=== PATIENT | female | born 1985 | race Caucasian/White ===

== ENCOUNTER → 2016-10-28 | Outpatient (CLI) | payer OTHER ==
--- NOTE | 2016-10-28 11:03 | US ---
EXAMINATION TYPE: US abdomen complete DATE OF EXAM: 10/28/2016 10:37 AM COMPARISON: CT in PACS CLINICAL HISTORY: R1013 EPIGASTIC PAIN. Pt states ABD pain, more on left EXAM MEASUREMENTS: Liver Length: 15.0 cm Gallbladder Wall: Surgically absent cm CBD: 0.4 cm Spleen: 13.7 cm Right Kidney: 11.8 x 3.7 x 4.2 cm Left Kidney: 11.3 x 4.2 x 5.7 cm Pancreas: wnl Liver: wnl Gallbladder: Surgically absent Evidence for sonographic Mena's sign: No CBD: wnl Spleen: Appeared enlarged Right Kidney: wnl Left Kidney: wnl Upper IVC: wnl Abd Aorta: wnl The liver is homogenous. The intrahepatic portion of the IVC and proximal abdominal aorta are within normal limits. The gallbladder is surgically absent. Common bile duct is unremarkable. The visualiz ed portions of the pancreas are homogenous. The spleen is mildly enlarged. Kidneys are symmetric and free of hydronephrosis. No renal lesions are seen. IMPRESSION: 1. Mild splenomegaly.
--- NOTE | 2016-10-28 12:01 | FL ---
EXAMINATION TYPE: FL UGI DATE OF EXAM: 10/28/2016 11:55 AM COMPARISON: NONE HISTORY: R10.3 EPIGASTRIC PAIN TECHNIQUE: Air contrast upper GI was performed. FINDINGS: Shoe Lay Out Planner image of the abdomen shows no gross abnormality. The esophagus shows normal motility and emptying into the stomach. No evidence of hiatal hernia or s tricture noted. Mild gastroesophageal reflux seen. The stomach shows normal distensibility, peristalsis, and mucosal folds. No evidence of any mass or ulcer disease. No significant gastroesophageal reflux was seen during real time performance of this study. The duodenal bulb and descending duodenum demonstrate mildly increased folds which may reflect duoden itis. IMPRESSION: 1. Suspect duodenitis. 2. Mild gastroesophageal reflux.
== END | disposition home or self-care (01) ==
LOC: RADUSWWP 10:17
PROVIDERS: ATTEND Family Medicine
DX: K21.9 Gastro-esophageal reflux disease without esophagitis (principal); R16.1 Splenomegaly, not elsewhere classified
CPT/HCPCS: 74240; 76700

== ENCOUNTER → 2017-01-27 | Outpatient (CLI) | payer OTHER ==
--- NOTE | 2017-01-27 17:41 | PN ---
DATE OF SERVICE: 01/27/17 A 31 year old lady has been followed in the Sleep Center for treatment of narcolepsy. I saw the patient about one year ago. At that time, we planned to repeat polysomnogram with multiple sleep latency test to confirm diagnosis of narcolepsy because previous sleep study was done with only three naps. The patient was not able to stay for four naps. The patient continued to have symptoms of significant excessive daytime sleepiness. Presently, [place] sleep scale is 23. Positive history of sleep paralysis, out of dream episodes of movement with her arm, fibromyalgia. In August 2015, the patient had intracranial hemorrhage. After that, she developed more episodes of irritability. Her sleep schedule now is from around 10:00 p.m. until around 7:30 a.m. Usually no problems with falling asleep while she is on Nortriptyline at bedtime. Presently her medications are: 1. Modafinil. 2. Lamictal. 3. Nortriptyline. 4. Promethazine. 5. Bentyl. 6. Hydrocodone. 7. Lisinopril. 8. BuSpar. 9. Q-Chris inhaler. 10. Ibuprofen. 11. Protonix. During physical exam, the patient in no distress. BP 114/73, HR 88, RR 16, height 5 feet 4 inches, weight 154, BMI 26.2, temp 98.3, oxygen saturation to 96 %. oropharynx moderately low position of soft palate. Possibly herpes on the upper lip. Other physical examination basically normal. HEENT: Some restriction of nasal breathing. Nasoseptal deviation. NECK: Supple. No JVD. Thyroid is not palpable. LUNGS: Clear to auscultation and percussion. Good air exchange. No wheezing or rhonchi. HEART: S1, S2 regular. No murmurs, gallops or rubs. EXTREMITIES: No clubbing or cyanosis. ABDOMEN: Soft, nontender. Bowel sounds present. No organomegaly appreciated. ONCOLOGY PHYSICIAN: Awake, alert and oriented times three. Cranial nerves 2 thru 7 intact. There is no fasciculation or atrophy noted. No focal deficits observed. IMPRESSION: 1. Narcolepsy with cataplexy. 2. Fibromyalgia. 3. Status post intracranial hemorrhage in August of 2015 without any significant neurological deficits. 4. Nasoseptal deviation with restriction of nasal breathing. 5. Asthma. 6. Acid reflux. 7. Back problems. 8. Migraines. 9. Possible REM sleep behavior disorder. 10. History of sleep paralysis. 11. Hypertension. PLAN: 1. Polysomnography for checking sleep and to recheck for any abnormalities of respiration with the following multiple sleep latency test. 2. Sleep hygiene with regular time in bed for at least eight hours. 3. No driving if feels any sleepiness. 4. Preferable position during sleep on the side. 5. Follow up visit after polysomnogram with MSLT to discuss the results and the following plan. 6. The patient is presently on Modafinil 400 mg in the morning, continue treatment with Modafinil. We may consider to add additional medication to decrease sleepiness but some ( ) medications may increase heart rate and subsequently blood pressure and subsequently will be contraindicated for the patient. Thank you very much for allowing me to participate in the management of your patient. Sincerely, Ad Lanza MD, PhD, [facility]. Diplomate of [place] [employer] of Sleep Medicine. Sleep Medicine Board by [place] [employer] Specialties [place] Board[employer] of Internal Medicine Business Manager of [facility] [place] [facility]
== END | disposition home or self-care (01) ==
LOC: SLEEP 16:05
PROVIDERS: ATTEND Internal Medicine
DX: G47.411 Narcolepsy with cataplexy (principal); M79.7 Fibromyalgia; J45.909 Unspecified asthma, uncomplicated; K21.9 Gastro-esophageal reflux disease without esophagitis; G43.909 Migraine, unspecified, not intractable, without status migrainosus; I10 Essential (primary) hypertension; J34.2 Deviated nasal septum; Z79.1 Long term (current) use of non-steroidal anti-inflammatories (NSAID); Z79.899 Other long term (current) drug therapy

== ENCOUNTER → 2017-05-25 | Outpatient (CLI) | payer OTHER ==
--- NOTE | 2017-05-25 11:32 | PN ---
FOLLOW UP VISIT DATE OF SERVICE: 05/25/2017. HISTORY: 32-year-old lady has been followed in Sleep Center to discuss results of the sleep studies and plan of the treatment. I discussed results of the studies with the patient in details. Polysomnogram did not show any significant respiratory abnormalities. Apnea-hypopnea index was 0. Oxygen level was above 91.5%. Multiple sleep latency on the following day consisted from 5 naps. Mean sleep latency was extremely short, only 3.1 minutes. No sleep onset REM periods have been documented. That indicates a diagnosis of narcolepsy. The patient was treated with modafinil. Originally she was treated with modafinil 400 mg, but then she did not feel well that and the dose was decreased to 200 mg. With this dose she still had some kind of and still feels a little bit nervousness and she continued to feel sleepiness during the day. [place] Sleepiness Scale today is 22. MEDICATIONS: Modafinil, Lamictal, nortriptyline, Bentyl, Promethazine, hydrocodone, lisinopril, BuSpar, QVAR inhaler, ibuprofen, Protonix. PHYSICAL EXAM: Patient in no distress, BP 122/81, HR 102, RR 14, temperature 98.3, oxygen saturation on room air 97%. Oropharynx moderately low position of soft palate. Nasal septum deviation. Neck Supple, no JVD. Thyroid is not palpable. LUNGS Clear to percussion and to auscultation. Good air exchange. No wheezing or rhonchi. HEART S1, S2 regular. No murmurs, gallops, or rubs. ABDOMEN Soft and nontender. Bowel sounds are present. No organomegaly appreciated. EXTREMITIES No clubbing or cyanosis. SILK SPOTTER Awake, alert, and oriented X3. Cranial nerves 2 to 7 intact. There is no fasciculation or atrophy. noted. No focal deficits observed. IMPRESSION: 1. No significant respiratory abnormalities during the sleep study. 2. Multiple sleep latency test showed a very short sleep latency 3.1 minutes which possibly confirmed diagnosis of narcolepsy without cataplexy. 3. Status post intracranial bleed in August of 2016 with unknown cause. 4. History of fibromyalgia. 5. Asthma. 6. Nasal septum deviation with restriction of nasal breathing. 7. Acid reflux. 8. Back problems. 9. Migraine. 10.History of sleep paralysis. 11.Hypertension. 12.A positive history of movements at night. It was documented marie and leg ___ __ in REM sleep during the sleep study, but no abnormal movements have been documented. PLAN: 1. I will start the patient with treatment on Adderall 5 mg in the morning and at around 1:00 pm. 2. Patient may continued to use her modafinil with adjustments of the dose. 3. No driving if feeling any sleepiness. 4. Sleep hygiene with regular time in bed for at least 8 hours. 5. HLA profile for narcolepsy. Thank you very much for allowing me to participate in management of your patient. Sincerely, Ad Lanza MD, PhD, FAASM Diplomat of [place] [employer] of Medical Specialties [place] [employer] of Internal Medicine Rope Rider of [facility] [place] EUSEBIA / HANKN: [id number] / MTDSiomara
== END | disposition home or self-care (01) ==
LOC: SLEEP 10:06
PROVIDERS: ATTEND Internal Medicine
DX: J45.909 Unspecified asthma, uncomplicated (principal); J34.2 Deviated nasal septum; K21.9 Gastro-esophageal reflux disease without esophagitis; G43.909 Migraine, unspecified, not intractable, without status migrainosus; I10 Essential (primary) hypertension; Z79.891 Long term (current) use of opiate analgesic; Z79.1 Long term (current) use of non-steroidal anti-inflammatories (NSAID); Z79.899 Other long term (current) drug therapy

== ENCOUNTER → 2017-07-28 | Outpatient (CLI) | payer OTHER ==
--- NOTE | 2017-07-28 12:28 | PN ---
PROGRESS NOTE DATE OF SERVICE: 07/28/2017 A 52-year-old lady who has been followed in the Sleep Center for treatment of narcolepsy. Presently patient is on treatment with Adderall 5 mg 2 times a day and Provigil 200 mg in the morning. In the past, patient tried Provigil 400 but according to her, it created more nervousness and anxiety and at the present time at the dose of 200 mg, also feel more nervous with this dose of Provigil. Adderall with a dose of 5 mg does not significantly improve her feeling with relationship to sleepiness. [place] Sleepiness Scale today is 22. Positive history of cataplexy is reaction on some emotions, especially laughing. Patient did not take her Adderall today. Patient continued to have some out of dream movements. MEDICATIONS: Modafinil, Lamictal, nortriptyline, Bentyl, promethazine, hydrocodone, lisinopril, BuSpar, QVAR inhaler, ibuprofen, Protonix. PHYSICAL EXAM: Patient in no distress. BP 144/96 on the right arm, pulse 102, RR 16. On the left arm, blood pressure 139/93, height 5, 4, weight 156, BMI 26.7, temp 97.5, oxygen saturation room air 98%. OROPHARYNX: Moderately low position of soft palate. Neck Supple, no JVD. Thyroid is not palpable. LUNGS Clear to percussion and to auscultation. Good air exchange. No wheezing or rhonchi. HEART S1, S2 regular. No murmurs, gallops, or rubs. ABDOMEN Soft and nontender. Bowel sounds are present. No organomegaly appreciated. EXTREMITIES No clubbing or cyanosis. GARDEN WORKER Awake, alert, and oriented X3. Cranial nerves 2 to 7 intact. There is no fasciculation or atrophy. noted. No focal deficits observed. IMPRESSION: 1. Narcolepsy with cataplexy. 2. , history of fibromyalgia. 3. Status post intracranial bleed in August of 2016 with unknown cause. 4. Nasal septum deviation with restriction of nasal breathing. 5. Acid reflux. 6. Back problem. 7. Migraine. 8. Hypertension. 9. No significant periodic limb movements by results of polysomnogram. 10.Possible REM sleep behavioral disorder. PLAN: 1. Patient will decrease dose of modafinil to 100 mg in the morning. 2. Will increase dose of Adderall to 10 mg 2 times a day. 3. Patient will very closely monitor her blood pressure. If increasing blood pressure on Adderall, she will decrease the dose or stop using. 4. She may need adjustments of medication for her blood pressure. 5. Sleep hygiene with regular time in bed for 7.5 hours. 6. No driving if feeling sleepiness. 7. Precaution to possibility of REM sleep behavioral disorder. Precaution should be using the [place] size bed. Not any objects close to the patient at night. No excess to fire, preferably to put mattress on the floor. We may consider to use clonazepam at that time to prevent these events. Thank you very much for allowing me to participate in the management of your patient. Sincerely, Ad Lanza MD, PhD, FAASM Diplomat of [place] Board of Medical Specialties [place] Board of Internal Medicine Electric Dolly Operator of [facility] [place] [email or web address] / HANKN: [id number] /
== END | disposition home or self-care (01) ==
LOC: SLEEP 10:32
PROVIDERS: ATTEND Internal Medicine
DX: G47.411 Narcolepsy with cataplexy (principal); I10 Essential (primary) hypertension; J34.2 Deviated nasal septum; M79.7 Fibromyalgia; G43.909 Migraine, unspecified, not intractable, without status migrainosus; K21.9 Gastro-esophageal reflux disease without esophagitis; Z79.1 Long term (current) use of non-steroidal anti-inflammatories (NSAID); Z79.51 Long term (current) use of inhaled steroids; Z79.899 Other long term (current) drug therapy; Z86.79 Personal history of other diseases of the circulatory system

== ENCOUNTER → 2017-10-13 | Day surgery (SDC) | payer OTHER ==
[2017-10-11 15:46] VITALS: BMI 25.7
[~2017-10-13] MED LIST: GLYCOPYRROLATE 0.2 MG/ML 2 ML VIAL ONE; LACTATED RINGERS 1,000 ML IV SCH; LIDOCAINE 1% 20 ML VIAL (10MG/ML) FOR IV START INTRADERMA PRN; LIDOCAINE 1% INJ 10MG/ML (20 ML MDV) ONE; PROPOFOL 10 MG/ML 20 ML VIAL IV ONE; fentaNYL (PF) 50 MCG/ML 2 ML AMP ONE
[2017-10-13 11:22] VITALS: RESP 16; TEMP 97.8
--- NOTE | 2017-10-13 12:09 | P.PCN ---
Date of Procedure: 10/13/17 Procedure(s) Performed: Procedure: Esophagogastroduodenoscopy and biopsy. Preoperative diagnosis: Epigastric pain. Postoperative diagnosis: 1. Mild gastritis. 2. Multiple biopsies obtained from the duodenum, antrum and esophagus. Preparation sedation: Was provided by anesthesia. Brief clinical history: The patient is a 32-year-old female who is referred for this evaluation because of epigastric pain. She has chronic reflux on treatment. She has also been experiencing and vomiting including coffee-ground vomiting and black stools around 2 weeks ago. This evaluation is to assess for peptic ulcer disease or other pathology. Procedure: With the patient on her left lateral decubitus position and after informed consent and adequate sedation, I passed the Olympus-GIF 160 video upper endoscope through the cricopharyngeus down the esophagus. GE junction was around 40 cm from the incisors and there was no definite hiatal hernia. There was no evidence of esophagitis or complicated reflux disease. The endoscope was then passed into the stomach which was insufflated with air and inspected in detail including the retroflex view in the cardia. There was some mottling and erythema in the antrum consistent with mild gastritis but there were no ulcers or erosions. Pyloric channel, duodenal bulb, post bulbar area and descending duodenum appeared within normal limits. Because of her symptoms , I obtained biopsies from the duodenum, antrum and esophagus then the endoscope was withdrawn. The patient tolerated the procedure well. Plan: The patient was reassured. Will await biopsy results and make further recommendations based on her course. She will follow-up with you as planned and I would be happy to see in the office if her symptoms persist.
[2017-10-13 12:34] VITALS: BP 114/70; PULSE 77
== END | disposition home or self-care (01) ==
LOC: ORWHC2ENDO 10:59
DX: K29.50 Unspecified chronic gastritis without bleeding (principal); K21.0 Gastro-esophageal reflux disease with esophagitis; J45.909 Unspecified asthma, uncomplicated; M79.7 Fibromyalgia; F17.210 Nicotine dependence, cigarettes, uncomplicated; Z79.51 Long term (current) use of inhaled steroids; Z79.1 Long term (current) use of non-steroidal anti-inflammatories (NSAID); Z88.8 Allergy status to other drugs, medicaments and biological substances; Z86.73 Personal history of transient ischemic attack (TIA), and cerebral infarction without residual deficits; Z79.891 Long term (current) use of opiate analgesic; Z79.899 Other long term (current) drug therapy
CPT/HCPCS: 81025; 88305; 43239; J2001; J3010; J2704

== ENCOUNTER → 2017-10-27 | Outpatient (CLI) | payer OTHER ==
--- NOTE | 2017-10-27 11:36 | SFUN ---
SLEEP CENTER FOLLOW UP NOTE DATE OF SERVICE: 10/27/2017 This 32-year-old lady has been followed in the sleep center for treatment of narcolepsy. Presently, patient is on treatment with Adderall 10 mg at 7 a.m. and at 1 p.m. and also Provigil 100 mg in the morning. With this regimen, she still feels very sleepy on the second part of the day and has problem with her sleep, has more episodes of sleep paralysis. [place] Sleepiness Scale today 21. The patient is on Klonopin 0.5 mg at bedtime, but she still continues to have some movements during the night especially in the middle of the night on that dose. MEDICATIONS: Modafinil, Lamictal, nortriptyline, Bentyl, promethazine, hydrocodone, lisinopril, BuSpar, Qvar inhaler, ibuprofen, Protonix, additionally clonazepam. PHYSICAL EXAM: During physical exam, the patient is in no distress. VITAL SIGNS: BP 125/86, HR 100, RR 16, height 5 feet 4 inches, weight 149, BMI 25.5, temp 99.5. HEENT: PERRLA, EOMI. Oropharynx moderately low position of soft palate. NECK: Supple, no JVD. Thyroid is not palpable. LUNGS: Clear to percussion and to auscultation. Good air exchange. No wheezing or rhonchi. HEART: S1, S2 regular. No murmurs, gallops, or rubs. ABDOMEN: Soft and nontender. Bowel sounds are present. No organomegaly appreciated. EXTREMITIES: No clubbing or cyanosis. FIBER DESIGN ENGINEER: Awake, alert, and oriented X3. Cranial nerves 2 to 7 intact. There is no fasciculation or atrophy. noted. No focal deficits observed. IMPRESSION: 1. Narcolepsy with cataplexy. 2. History of fibromyalgia. 3. Status post intracranial bleed in August 2016 with unknown cause. 4. Nasal septum deviation with restriction of nasal breathing. 5. Acid reflux. 6. Back problems. 7. History of migraine. 8. Hypertension. 9. No significant periodic limb movements. 10.Possible REM sleep behavioral disorder. PLAN: 1. The patient does not feel well with modafinil. She has episodes of headaches sometimes with modafinil that upsets her stomach. We will stop modafinil. 2. Will increase dose of Adderall to 30 mg a day, 10 mg in the morning after awakenings, 10 mg at noon and 10 mg at 3 p.m. 3. Monitoring of blood pressure. 4. No driving if feeling any sleepiness. 5. Sleep hygiene with regular time in bed for at least 8 hours. 6. Patient still has movements at night. We will increase the dose of Klonopin to 0.75 mg at bedtime. Presently, she is on 0.5 mg. 7. Precautions related to REM sleep behavioral disorder has been discussed with the patient. Thank you very much for allowing me to participate in management of your patient. Sincerely, Ad Lanza MD, PhD, FAASM Diplomat of [place] Board of Medical Specialties [place] Board of Internal Medicine Mechanical Product Design Engineer of [facility] [place] EUSEBIA / KELSEY: [id number] /
== END | disposition home or self-care (01) ==
LOC: SLEEP 10:15
PROVIDERS: ATTEND Internal Medicine
DX: G47.411 Narcolepsy with cataplexy (principal); M79.7 Fibromyalgia; J34.2 Deviated nasal septum; K21.9 Gastro-esophageal reflux disease without esophagitis; M54.9 Dorsalgia, unspecified; I10 Essential (primary) hypertension; Z86.69 Personal history of other diseases of the nervous system and sense organs; Z79.51 Long term (current) use of inhaled steroids; Z79.1 Long term (current) use of non-steroidal anti-inflammatories (NSAID); Z86.79 Personal history of other diseases of the circulatory system; Z79.899 Other long term (current) drug therapy; Z98.890 Other specified postprocedural states; Z79.891 Long term (current) use of opiate analgesic

== ENCOUNTER → 2018-03-16 | Outpatient (CLI) | payer OTHER ==
--- NOTE | 2018-03-16 11:37 | SFUN ---
SLEEP CENTER FOLLOW UP NOTE DATE OF SERVICE: 03/16/2018 A 33-year-old lady who has been followed in the Sleep Center for treatment of narcolepsy. Presently, patient is on treatment with Adderall 10 mg in the morning, around noontime and around 2 pm. With this regimen, she still has some maximal problems with her sleepiness around 2 pm. I asked her about the heart rate and patient believes that with the Adderall, no significant changes of her heart rate while she is on medication. She is also on several medications for the blood pressure. Recently, metoprolol was added for the treatment just because of the heart rate. [place] Sleepiness Scale today is 22. Occasional episodes of cataplexy, but without fall just with slight weakness in the body as a reaction from laughing and anger. MEDICATIONS: Trintellix 10 mg daily, Adderall 10 mg t.i.d., lisinopril-hydrochlorothiazide once a day, [QAMARKER], promethazine 25 mg once a day, Nortriptyline 100 mg at bedtime, Klonopin 1 mg at bedtime, QR inhaler Ventolin, Pierpont, omeprazole, metoprolol, hyoscyamine, vitamin D supplement. With Klonopin at bedtime, patient feels that she sleeps well during the night and not any present problems related to the sleep itself.. PHYSICAL EXAM: Patient in no distress, BP 107/60, HR 90, RR 16, height 5, 4, weight 137, BMI 22.4, temperature 98.4, oxygen saturation room air 98%. OROPHARYNX: Moderately low position of soft palate. HEART: S1, S2, regular, tachycardia. Neck Supple, no JVD. Thyroid is not palpable. LUNGS Clear to percussion and to auscultation. Good air exchange. No wheezing or rhonchi. ABDOMEN Soft and nontender. Bowel sounds are present. No organomegaly appreciated. EXTREMITIES No clubbing or cyanosis. HUMAN RESOURCES COMPLIANCE MANAGER Awake, alert, and oriented X3. Cranial nerves 2 to 7 intact. There is no fasciculation or atrophy. noted. No focal deficits observed. IMPRESSION: 1. Narcolepsy with cataplexy. 2. History of hemorrhagic stroke in 2017. 3. Back problems. 4. Acid reflux. 5. Hypertension. 6. Migraine. 7. Asthma. PLAN: 1. Patient will continue Adderall 10 mg 1 tablet in the morning. She will take 2 tablets at around 1:30 pm. Total dose during the day will stay the same. 2. She will check her heart rate several times during the day before Adderall and after Adderall. 3. Sleep hygiene with regular time in bed for at least 8 hours. 4. Daytime naps permitted. 5. No driving if feeling any sleepiness. 6. Precautions related to possibility of REM sleep behavioral disorder, but again presently patient referred that she sleeps better. 7. Followup visit in 3 months. Thank you very much for allowing me to participate in the management of your patient. Sincerely, Ad Lanza MD, PhD, FAASM Diplomat of [place] Board of Medical Specialties [place] Board of Internal Medicine Pressure Welder of [facility] [place] EUSEBIA / KELSEY: [id number] /
== END | disposition home or self-care (01) ==
LOC: SLEEP 10:17
PROVIDERS: ATTEND Internal Medicine
DX: G47.411 Narcolepsy with cataplexy (principal); K21.9 Gastro-esophageal reflux disease without esophagitis; G43.909 Migraine, unspecified, not intractable, without status migrainosus; J45.909 Unspecified asthma, uncomplicated; M53.9 Dorsopathy, unspecified; I10 Essential (primary) hypertension; Z79.899 Other long term (current) drug therapy; Z86.73 Personal history of transient ischemic attack (TIA), and cerebral infarction without residual deficits; Z79.891 Long term (current) use of opiate analgesic

== ENCOUNTER → 2018-06-29 | Outpatient (CLI) | payer OTHER ==
--- NOTE | 2018-06-29 12:36 | SFUN ---
SLEEP CENTER FOLLOW UP NOTE DATE OF SERVICE: 06/29/2018 A 33-year-old lady who has been followed in the Sleep Center for treatment of most probably narcolepsy. Patient is on treatment with Adderall presently 10 mg 3 times a day. Sometimes she takes it 2 times a day, but in 20 mg in one of the taking time. Generally, she feels better with this regimen after the amount of medication was increased, but she still has episodes when she feels sleepy, especially afternoon. She tried to take 20 mg instead of 10 mg, but she did not feel significant difference in her feeling. She has taken clonazepam and nortriptyline at bedtime, and with this regimen, usually she sleeps well. There were several nights when she wakes up in the middle of the night and had difficulties to fall asleep. Again that might create for some more problems during the day, in relationship to sleepiness. [place] Sleepiness Scale today is 21. MEDICATIONS: Trintellix 10 mg daily, Adderall 10 mg t.i.d., lisinopril/hydrochlorothiazide once a day, promethazine 25 mg once a day, Nortriptyline 100 mg at bedtime, Klonopin 1 mg at bedtime, QR inhaler, Ventolin, Cl[place], omeprazole, metoprolol, , vitamin D supplement. Today, patient did not take her metoprolol. PHYSICAL EXAM: Patient in no distress. BP 121/71, HR 101, RR 16, height 5, 4, weight 132.8, body mass index 22.6, temperature 98.3, oxygen saturation at room air 98%. OROPHARYNX: Moderately low position of soft palate. Neck Supple, no JVD. Thyroid is not palpable. LUNGS Clear to percussion and to auscultation. Good air exchange. No wheezing or rhonchi. HEART S1, S2 regular. No murmurs, gallops, or rubs. ABDOMEN Soft and nontender. Bowel sounds are present. No organomegaly appreciated. EXTREMITIES No clubbing or cyanosis. FUNDING ANALYST Awake, alert, and oriented X3. Cranial nerves 2 to 7 intact. There is no fasciculation or atrophy. noted. No focal deficits observed. IMPRESSION: 1. Narcolepsy, type 1 with cataplexy. 2. History of hemorrhagic stroke in 2017. 3. Back problems. 4. Acid reflux. 5. Hypertension. 6. Migraine. 7. Asthma. PLAN: 1. Patient will continue to take Adderall 10 mg3 times a day. 2. She will continue to take metoprolol for control of her heart rate and for hypertension. 3. Sleep hygiene with regular time in bed for at least 8 hours. 4. Scheduled day time naps for 20 - 30 minutes every 4 hours. 5. Precautions to driving. No driving if feeling sleepiness. 6. Not any significant episodes of REM sleep behavioral disorder recently unless patient just moves her arms up, sometimes at night but now on Klonopin it has happened rarely. Thank you very much for allowing me to participate in the management of your patient. Sincerely, Ad Lanza MD, PhD, FAASM Diplomat of Citizen [place] Board of Medical Specialties Citizen [place] Board of Internal Medicine Public Speaking Professor of [facility] [place] MMODL / HANKN: [id number] /
== END | disposition home or self-care (01) ==
LOC: SLEEP 10:58
PROVIDERS: ATTEND Internal Medicine
DX: G47.411 Narcolepsy with cataplexy (principal); M53.80 Other specified dorsopathies, site unspecified; K21.9 Gastro-esophageal reflux disease without esophagitis; I10 Essential (primary) hypertension; G43.909 Migraine, unspecified, not intractable, without status migrainosus; J45.909 Unspecified asthma, uncomplicated; Z79.891 Long term (current) use of opiate analgesic; Z79.899 Other long term (current) drug therapy; Z86.73 Personal history of transient ischemic attack (TIA), and cerebral infarction without residual deficits

== ENCOUNTER → 2018-11-02 | Outpatient (CLI) | payer OTHER ==
--- NOTE | 2018-11-02 11:59 | SFUN ---
SLEEP CENTER FOLLOW UP NOTE DATE OF SERVICE: 11/02/2018 A 33-year-old lady who has been followed in the sleep center for treatment of narcolepsy. Presently, patient is on treatment with Adderall 10 mg 3 times a day, but she still continued to feel sleepiness and tiredness during the day. [place] Sleepiness Scale significantly increased to 24. Several years ago she was tried on modafinil, but did not have any positive reaction to medication, did not like it and had problem with that. Patient is on Klonopin to help her to sleep better at night and she sleeps well on Klonopin. MEDICATIONS: Other medications include clonazepam, , lisinopril/hydrochlorothiazide, metoprolol, [place], nortriptyline, omeprazole, inhaler, Ventolin inhaler, vitamin D3 supplement, promethazine, Trintellix. PHYSICAL EXAM: During physical exam, patient in no distress. VITAL SIGNS: BP 105/70, HR 87, RR 16, height 64 inches, weight 139.4 pounds, body mass index is 23.8, temperature 98.3, oxygen saturation on room air 100%. HEENT: PERRLA, EOMI, evaluation of oropharynx showed tongue protrudes midline. NECK: Supple, no JVD. Thyroid is not palpable. LUNGS: Clear to percussion and to auscultation. Good air exchange. No wheezing or rhonchi. HEART: S1, S2 regular. No murmurs, gallops, or rubs. ABDOMEN: Soft and nontender. Bowel sounds are present. No organomegaly appreciated. EXTREMITIES: No clubbing or cyanosis. DRUG CLERK: Awake, alert, and oriented X3. Cranial nerves 2 to 7 intact. There is no fasciculation or atrophy. noted. No focal deficits observed. IMPRESSION: 1. Narcolepsy type 1 with cataplexy. 2. History of hemorrhagic stroke in 2017. 3. Back problems. 4. Acid reflux. 5. Hypertension. 6. Migraine. 7. Asthma. PLAN: 1. We will increase morning and afternoon dose of Adderall to 15 mg. 2. Patient will monitor her blood pressure closely. 3. Sleep hygiene with regular time in bed for 8 hours. 4. Daytime naps permitted. 5. No driving if feeling any sleepiness. 6. We will continue Klonopin 1 mg at bedtime. Thank you very much for allowing me to participate in management of your patient. Sincerely, Ad Lanza MD, PhD, FAASM Diplomat of [employer] Radial Drill Press Set Up Operator of [facility] [place] MMODL / HANKN: [id number] /
== END ==
LOC: SLEEP 10:21
PROVIDERS: ATTEND Internal Medicine
DX: G47.411 Narcolepsy with cataplexy (principal); M54.89 Other dorsalgia; K21.9 Gastro-esophageal reflux disease without esophagitis; I10 Essential (primary) hypertension; G43.909 Migraine, unspecified, not intractable, without status migrainosus; J45.909 Unspecified asthma, uncomplicated; Z86.73 Personal history of transient ischemic attack (TIA), and cerebral infarction without residual deficits; Z79.899 Other long term (current) drug therapy; Z79.891 Long term (current) use of opiate analgesic

== ENCOUNTER → 2019-05-03 | Outpatient (CLI) | payer OTHER ==
--- NOTE | 2019-05-03 12:30 | SFUN ---
SLEEP CENTER FOLLOW UP NOTE DATE OF SERVICE: 05/03/2019 A 34-year-old lady who has been followed in the Sleep Center for treatment of narcolepsy. During previous visit, we adjusted dose of Adderall to 4 tablets a day of 10 mg. She has taken 1-1/2 tablet in the morning, 1-1/2 tablet at around noon and 1 tablet at around 3 pm. With this regimen, she feels better in terms of her alertness during the day. She could manage during the day. She is also taking medication for hypertension and beta-shahzad to control her heart rate. Today, she took her Adderall but did not take her other medications. [place] Sleepiness Scale today is 0. MEDICATIONS: Clonazepam, lisinopril, hydrochlorothiazide, metoprolol, [place], nortriptyline, omeprazole, Ventolin inhaler, Q-SHABBIR, albuterol, vitamin C, iron supplement, Trintellix, thiamin. PHYSICAL EXAM: Patient in no distress, BP 131/75, HR around 110, RR 16, height 5, 4, weight 137, body mass index 23.3, temperature 98.6, oxygen saturation at room air 98%. HEART: S1, S2 regular, tachycardia. HEENT PERRLA, EOMI, evaluation of oropharynx showed tongue protrudes midline. Neck Supple, no JVD. Thyroid is not palpable. LUNGS Clear to percussion and to auscultation. Good air exchange. No wheezing or rhonchi. ABDOMEN Soft and nontender. Bowel sounds are present. No organomegaly appreciated. EXTREMITIES No clubbing or cyanosis. LOCKS TENDER Awake, alert, and oriented X3. Cranial nerves 2 to 7 intact. There is no fasciculation or atrophy. noted. No focal deficits observed. IMPRESSION: 1. Narcolepsy with cataplexy type 1, sleepiness mostly on control with Adderall at the present time. 2. History of hemorrhagic stroke in 2017. 3. Back problem. 4. Acid reflux. 5. Hypertension. 6. Migraine. 7. Asthma. 8. Rare episodes of sleep of paralysis and some episodes of arm movements during the night, possibly out of dream movements, possible REM sleep behavioral disorder, but patient does not go out of bed only a few arm movements. PLAN: 1. Will continue Adderall with the same dose, 15 mg in the morning, 15 mg at noon and 10 mg at 3:pm. 2. Patient will continue to take her other medications. I discussed with her necessity to check her pulse rate during the day and if necessary, other medications like beta blockers could be adjusted or we may consider to switch her to something different, although previously she already had been tried on modafinil and she felt nervous while using modafinil. With Adderall, she does not feel any significant side effects. Again today, her heart rate increased, but she did not take her metoprolol today. 3. Precautions related to driving. No driving if feeling sleepiness. 4. She is on treatment with Klonopin 1 mg at bedtime. Will continue this treatment to prevent any abnormal movements during the night to help her to sleep better. Thank you very much for allowing me to participate in the management of your patients. Sincerely, Ad Lanza MD, PhD, FAASM Diplomat of [employer] Video And Sound Recorder of [facility] [place] MMODL / KELSEY: [id number] /
== END ==
LOC: SLEEP 11:27
PROVIDERS: ATTEND Internal Medicine
DX: G47.411 Narcolepsy with cataplexy (principal); K21.9 Gastro-esophageal reflux disease without esophagitis; I10 Essential (primary) hypertension; G43.909 Migraine, unspecified, not intractable, without status migrainosus; J45.909 Unspecified asthma, uncomplicated; R29.898 Other symptoms and signs involving the musculoskeletal system; Z79.899 Other long term (current) drug therapy; Z79.891 Long term (current) use of opiate analgesic; Z86.73 Personal history of transient ischemic attack (TIA), and cerebral infarction without residual deficits

== ENCOUNTER → 2019-09-21 | Outpatient (CLI) | payer OTHER ==
--- NOTE | 2019-09-21 09:50 | US ---
EXAMINATION TYPE: US abdomen complete DATE OF EXAM: 09/21/2019 COMPARISON: NONE CLINICAL HISTORY: R10.2 Pelvic pain, N94.10, R10.84 Abd pain. epigastric pain, cholecystectomy EXAM MEASUREMENTS: Liver Length: 15.8 cm Gallbladder Wall: Surgically absent CBD: 0.5 cm Spleen: 12.2 cm Right Kidney: 10.9 x 4.1 x 4.0 cm Left Kidney: 11.5 x 3.8 x 4.9 cm Pancreas: wnl Liver: wnl Gallbladder: Surgically absent Evidence for sonographic Mena's sign: no CBD: wnl Spleen: wnl Right Kidney: Cortical scar is seen in the junctional zone. Left Kidney: wnl Upper IVC: wnl Abd Aorta: wnl The liver is homogenous. The intrahepatic portion of the IVC and proximal abdominal aorta are within normal limits. Common bile duct is unremarkable. The visualized portions of the pancreas are homoge nous. The spleen is unremarkable. Kidneys are symmetric and free of hydronephrosis. No renal lesio ns are seen. IMPRESSION: No bladder is surgically absent. Cortical scar the right kidney, otherwise unremarkable a bdominal ultrasound.
--- NOTE | 2019-09-21 09:55 | US ---
EXAMINATION TYPE: US pelvis complete transvag DATE OF EXAM: 09/21/2019 COMPARISON: Pelvic ultrasound dated 12/04/2015 CLINICAL HISTORY: R10.2 Pelvic pain, N94.10, R10.84 Abd pain. pelvic pain ongoing for years, h/o cyst s TECHNIQUE: TA/TV. Transabdominal sonographic images of the pelvis and transvaginal sonographic imag es were acquired Date of LMP: 09/14/2019 EXAM MEASUREMENTS: Uterus: 8.4 x 4.4 x 3.6 cm Endometrial Stripe: 0.4 cm Right Ovary: 2.7 x 2.3 x 2.0 cm Left Ovary: 2.9 x 1.8 x 1.5 cm 1. Uterus: Anteverted wnl 2. Endometrium: minimal fluid seen within, 0.2cm 3. Right Ovary: Physiologic follicular change 4. Left Ovary: follicle seen at 1.0cm 5. Bilateral Adnexa: wnl 6. Posterior cul-de-sac: wnl IMPRESSION: Scant amount of fluid within the endometrium, likely physiologic. No abnormal endometrial thickening. Physiologic follicular change of the ovaries.
== END | disposition home or self-care (01) ==
LOC: RADUSWWP 09:02
PROVIDERS: ATTEND Family Medicine
DX: N28.89 Other specified disorders of kidney and ureter (principal); R94.5 Abnormal results of liver function studies; R10.13 Epigastric pain; R10.84 Generalized abdominal pain; N94.10 Unspecified dyspareunia; R10.2 Pelvic and perineal pain
CPT/HCPCS: 76700; 76830; 76856

== ENCOUNTER 2020-06-10 02:53 | Observation (INO) | payer OTHER ==
--- NOTE | 2020-06-10 03:10 | ED ---
Fever HPI - General Chief Complaint: Fever Stated Complaint: SOB Time Seen by Provider: 06/10/20 02:56 Source: patient, EMS, RN notes reviewed, old records reviewed Mode of arrival: EMS Limitations: no limitations - History of Present Illness Initial Comments: Is a 35-year-old female with known history of asthma coming with fever shortness of breath cough or congestion no known sick contacts or travel history, patient does not feel well breathing treatments at home are not working. No recent hospital admissions MD Complaint: fever, weakness -: days(s) Temperature Source: subjective Context: multiple patients with similar symptoms Associated Symptoms: chills, myalgias, cough Treatments Prior to Arrival: none - Related Data Home Medications Medication Instructions Recorded Confirmed Albuterol Inhaler (Mhu) [Ventolin 2 puff INHALATION RT-Q6H PRN 12/04/15 10/13/17 Hfa Inhaler] Dicyclomine [Bentyl] 10 mg PO TID PRN 12/04/15 10/13/17 HYDROcodone/APAP 7.5-325MG [[place] 1 tab PO TID PRN 12/04/15 10/13/17 7.5-325] Modafinil [Provigil] 200 mg PO QAM 12/04/15 10/13/17 Promethazine [Phenergan] 25 mg PO TID PRN 12/04/15 10/13/17 Beclomethasone Dipropionate [Qvar 1 puff INHALATION BID 02/06/16 10/13/17 80 mcg] Ibuprofen [Motrin] 200 mg PO Q6HR PRN 02/06/16 10/13/17 Dextroamphetamine/Amphetamine 10 mg PO BID 10/11/17 10/13/17 [Adderall] Lisinopril-Hctz 10-12.5 mg 1 tab PO DAILY 10/11/17 10/13/17 [Zestoretic 10-12.5] Nortriptyline [Pamelor] 100 mg PO HS 10/11/17 10/13/17 Omeprazole 20 mg PO DAILY 10/11/17 10/13/17 Vortioxetine Hydrobromide 10 mg PO HS 10/11/17 10/13/17 [Trintellix] clonazePAM [KlonoPIN] 0.5 mg PO HS 10/11/17 10/13/17 Allergies Allergy/AdvReac Type Severity Reaction Status Date / Time sumatriptan [From Imitrex] Allergy told Verified 06/10/20 03:05 caused her stroke Review of Systems ROS Statement: Those systems with pertinent positive or pertinent negative responses have been documented in the HPI. ROS Other: All systems not noted in ROS Statement are negative. Past Medical History Past Medical History: Asthma, CVA/TIA, Fibromyalgia, GERD/Reflux, Hypertension Additional Past Medical History / Comment(s): hx. ovarian cysts, [id number] term memory issues,tinnitus,ocular migraines, narcolepsy, recent problems w/abd. pain & one time coffee ground emesis, just finished antibiotic- abd. pain improved History of Any Multi-Drug Resistant Organisms: None Reported Past Surgical History: Section, Cholecystectomy, Tubal Ligation Additional Past Surgical History / Comment(s): x3 Past Anesthesia/Blood Transfusion Reactions: No Reported Reaction, Motion Sickness Past Psychological History: Anxiety, Depression Smoking Status: Current every day smoker Past Alcohol Use History: Occasional Past Drug Use History: None Reported - Past Family History Mother Family Medical History: Diabetes Mellitus, Hypertension Father Family Medical History: Cancer Additional Family Medical History / Comment(s): Lung CA General Exam Limitations: no limitations General appearance: alert, in no apparent distress Head exam: Present: atraumatic, normocephalic, normal inspection Eye exam: Present: normal appearance, PERRL, EOMI. Absent: scleral icterus, conjunctival injection, periorbital swelling ENT exam: Present: normal exam, mucous membranes moist Neck exam: Present: normal inspection. Absent: tenderness, meningismus, lymphadenopathy Respiratory exam: Present: wheezes, accessory muscle use. Absent: respiratory distress, rales, rhonchi, stridor Cardiovascular Exam: Present: regular rate, normal rhythm, normal heart sounds. Absent: systolic murmur, diastolic murmur, rubs, gallop, clicks GI/Abdominal exam: Present: soft, normal bowel sounds. Absent: distended, tenderness, guarding, rebound, rigid Extremities exam: Present: normal inspection, full ROM, normal capillary refill. Absent: tenderness, pedal edema, joint swelling, calf tenderness Back exam: Present: normal inspection Neurological exam: Present: alert, oriented X3, CN II-XII intact Psychiatric exam: Present: normal affect, normal mood Skin exam: Present: warm, dry, intact, normal color. Absent: rash Course Vital Signs 06/10/20 06/10/20 06/10/20 02:55 04:00 04:28 Temperature 98.4 F Pulse Rate 73 73 Respiratory 18 18 20 Rate Blood Pressure 133/86 112/73 O2 Sat by Pulse 97 95 Oximetry - Reevaluation(s) Reevaluation #1: 06/10/20 03:37 Medical records reviewed Reevaluation #2: 06/10/20 04:50 Patient feeling improved here in the ER with breathing treatment, resting comfortably Medical Decision Making - Medical Decision Making 45 female severe asthma exacerbation. Patient be admitted for breathing treatments, rule out coronavirus and fever control - Lab Data Result diagrams: 06/10/20 03:18 06/10/20 03:18 Lab Results 06/10/20 06/10/20 06/10/20 Range/Units 03:18 03:18 03:18 WBC 9.3 (3.8-10.6) k/uL RBC 5.18 (3.80-5.40) m/uL Hgb 14.7 (11.4-16.0) gm/dL Hct 42.4 (34.0-46.0) % MCV 81.7 (80.0-100.0) fL MCH 28.4 (25.0-35.0) pg MCHC 34.7 (31.0-37.0) g/dL RDW 14.0 (11.5-15.5) % Plt Count 213 (150-450) k/uL MPV 9.0 Neutrophils % 78 % Lymphocytes % 15 % Monocytes % 5 % Eosinophils % 0 % Basophils % 1 % Neutrophils # 7.3 (1.3-7.7) k/uL Lymphocytes # 1.4 (1.0-4.8) k/uL Monocytes # 0.5 (0-1.0) k/uL Eosinophils # 0.0 (0-0.7) k/uL Basophils # 0.1 (0-0.2) k/uL Sodium 139 (137-145) mmol/L Potassium 4.5 (3.5-5.1) mmol/L Chloride 108 H (98-107) mmol/L Carbon Dioxide 21 L (22-30) mmol/L Anion Gap 10 mmol/L BUN 9 (7-17) mg/dL Creatinine 0.61 (0.52-1.04) mg/dL Est GFR (CKD-EPI)AfAm >90 (>60 ml/min/1.73 sqM) Est GFR (CKD-EPI)NonAf >90 (>60 ml/min/1.73 sqM) Glucose 116 H (74-99) mg/dL Plasma Lactic Acid Cody 1.4 (0.7-2.0) mmol/L Calcium 9.5 (8.4-10.2) mg/dL Magnesium 2.4 H (1.6-2.3) mg/dL Total Bilirubin 0.3 (0.2-1.3) mg/dL AST 27 (14-36) U/L ALT 38 H (4-34) U/L Alkaline Phosphatase 89 (38-126) U/L Lactate Dehydrogenase 432 (313-618) U/L C-Reactive Protein 20.9 H (<10.0) mg/L Total Protein 7.5 (6.3-8.2) g/dL Albumin 4.6 (3.5-5.0) g/dL - EKG Data -: EKG Interpreted by Me (EKG shows sinus rhythm 87 SC 136 QRS 74 QTc 428) - Radiology Data Radiology results: report reviewed (Chest x-rays negative for acute disease), image reviewed Disposition Clinical Impression: Fever, Viral infection, Asthma exacerbation attacks, Asthma exacerbation Disposition: HOME SELF-CARE Condition: Good Is patient prescribed a controlled substance at d/c from ED?: No Referrals: Mckenzie Obrien DO [Primary Care Provider] - 1-2 days
[2020-06-10 03:31] LABS: Basophils # (A) 0.1 k/uL (0-0.2); Basophils % (A) 1 %; Eosinophils % (A) 0 %; HCT 42.4 % (34.0-46.0); HGB 14.7 gm/dL (11.4-16.0); Lymphocytes # (A) 1.4 k/uL (1.0-4.8); Lymphocytes % (A) 15 %; MCH 28.4 pg (25.0-35.0); MCHC 34.7 g/dL (31.0-37.0); MCV 81.7 fL (80.0-100.0); Monocytes # (A) 0.5 k/uL (0-1.0); Monocytes % (A) 5 %; Neutrophils # (A) 7.3 k/uL (1.3-7.7); Neutrophils % (A) 78 %; Platelet Count 213 k/uL (150-450); RBC 5.18 m/uL (3.80-5.40); WBC 9.3 k/uL (3.8-10.6)
--- NOTE | 2020-06-10 03:42 | XR ---
EXAM: XR Chest, 1 View CLINICAL HISTORY: ITS.REASON XR Reason: Suspected COVID-19 pneumonia TECHNIQUE: Frontal view of the chest. COMPARISON: 11/07/14. FINDINGS: Lungs: Mild lower lung opacities, possible atelectasis. No consolidation. Pleural space: No significant pleural effusion or pneumothorax. Heart: Unremarkable. Mediastinum: Unremarkable. Bones/joints: No acute fracture. IMPRESSION: Mild lower lung opacities, possible atelectasis. No consolidation.
[2020-06-10 03:54] LABS: Potassium 4.5 mmol/L (3.5-5.1)
[2020-06-10 03:57] LABS: ALT 38 U/L (4-34); AST 27 U/L (14-36); African American GFR (CKD) >90 (>60 ml/min/1.73 sqM); Albumin 4.6 g/dL (3.5-5.0); Alkaline Phosphatase 89 U/L (38-126); Anion Gap 10 mmol/L; Blood Urea Nitrogen 9 mg/dL (7-17); C Reactive Protein 20.9 mg/L (<10.0); Calcium 9.5 mg/dL (8.4-10.2); Carbon Dioxide 21 mmol/L (22-30); Chloride 108 mmol/L (98-107); Glucose 116 mg/dL (74-99); LDH 432 U/L (313-618); Magnesium 2.4 mg/dL (1.6-2.3); Non-African American GFR(CKD) >90 (>60 ml/min/1.73 sqM); Sodium 139 mmol/L (137-145); Total Bilirubin 0.3 mg/dL (0.2-1.3); Total Protein 7.5 g/dL (6.3-8.2)
[2020-06-10] MEDS ORDERED: methylPREDNISolone SOD SUCCI 125 MG/2 ML VIAL IV STA (04:47)
[2020-06-10] MEDS ORDERED: IPRATROPIUM-ALBUTEROL 3 ML NEB INHALATION STA (04:47)
[2020-06-10] MEDS ORDERED: SODIUM CHLORIDE 0.9% 1,000 ML IV SCH (05:00)
[2020-06-10] MEDS ORDERED: ALBUTEROL HFA INHALER INHALATION STA (05:55)
[2020-06-10] MEDS ORDERED: methylPREDNISolone SOD SUCCI 125 MG/2 ML VIAL IV SCH (06:00)
[2020-06-10] MEDS: ALBUTEROL HFA INHALER INHALATION SCH ×2 (07:50→12:01)
[2020-06-10] MEDS ORDERED: TIOTROPIUM 18 MCG/PUFF INHALER INHALATION SCH (08:00)
[2020-06-10 10:03] LABS: Ferritin 23.8 ng/mL (10.0-291.0)
[2020-06-10] MEDS ORDERED: predniSONE 20 MG TAB PO ONE (12:00)
[2020-06-10 12:44] VITALS: BP 118/75; PULSE 90; RESP 24; TEMP 99.3
--- NOTE | 2020-06-10 12:50 | P.DS ---
Providers Date of admission: 06/10/20 04:47 Attending physician: Bonifacio Ryan Primary care physician: Mckenzie Obrien [facility] Course: Refer to HPI for further details Patient Condition at Discharge: Good Plan - Discharge Summary Discharge Rx Participant: Yes New Discharge Prescriptions: New Cefuroxime Axetil [Ceftin] 500 mg PO BID 4 Days #8 tab Mometasone/Formoterol [Dulera 100 Mcg-5 Mcg Inhaler] 1 puff PO BID #1 inhaler predniSONE 10 mg PO DAILY #15 tab Albuterol Inhaler [Ventolin Hfa Inhaler] 2 puff INHALATION RT-QID PRN #1 inhaler PRN Reason: Shortness Of Breath Or Wheezing Continue Promethazine [Phenergan] 25 mg PO BID PRN PRN Reason: Nausea Beclomethasone Dipropionate [Qvar 80 mcg] 1 puff INHALATION RT-BID Dextroamphetamine/Amphetamine [Adderall] 10 mg PO QID Lisinopril-Hctz 10-12.5 mg [Zestoretic 10-12.5] 1 tab PO DAILY Amitriptyline HCl [Elavil] 100 mg PO HS Metoprolol Tartrate [Lopressor] 25 mg PO BID Hyoscyamine Sulfate [Levsin] 0.125 mg PO TID PRN PRN Reason: IBS clonazePAM [KlonoPIN] 1 mg PO HS Levothyroxine Sodium [Synthroid] 50 mcg PO DAILY Desvenlafaxine [Pristiq ER] 100 mg PO DAILY Omeprazole [PriLOSEC] 40 mg PO DAILY Albuterol Sulfate [Ventolin HFA] 1 - 2 puff INHALATION RT-Q4H PRN PRN Reason: Shortness Of Breath Discontinued Azithromycin [Zithromax] See Taper PO DAILY predniSONE See Taper PO DAILY Discharge Medication List Promethazine [Phenergan] 25 mg PO BID PRN 12/04/15 [History] Beclomethasone Dipropionate [Qvar 80 mcg] 1 puff INHALATION RT-BID 02/06/16 [History] Dextroamphetamine/Amphetamine [Adderall] 10 mg PO QID 10/11/17 [History] Lisinopril-Hctz 10-12.5 mg [Zestoretic 10-12.5] 1 tab PO DAILY 10/11/17 [History] Albuterol Inhaler [Ventolin Hfa Inhaler] 2 puff INHALATION RT-QID PRN #1 inhaler 06/10/20 [Rx] Albuterol Sulfate [Ventolin HFA] 1 - 2 puff INHALATION RT-Q4H PRN 06/10/20 [History] Amitriptyline HCl [Elavil] 100 mg PO HS 06/10/20 [History] Cefuroxime Axetil [Ceftin] 500 mg PO BID 4 Days #8 tab 06/10/20 [Rx] Desvenlafaxine [Pristiq ER] 100 mg PO DAILY 06/10/20 [History] Hyoscyamine Sulfate [Levsin] 0.125 mg PO TID PRN 06/10/20 [History] Levothyroxine Sodium [Synthroid] 50 mcg PO DAILY 06/10/20 [History] Metoprolol Tartrate [Lopressor] 25 mg PO BID 06/10/20 [History] Mometasone/Formoterol [Dulera 100 Mcg-5 Mcg Inhaler] 1 puff PO BID #1 inhaler 06/10/20 [Rx] Omeprazole [PriLOSEC] 40 mg PO DAILY 06/10/20 [History] clonazePAM [KlonoPIN] 1 mg PO HS 06/10/20 [History] predniSONE 10 mg PO DAILY #15 tab 06/10/20 [Rx] Follow up Appointment(s)/Referral(s): Mckenzie Obrien DO [Primary Care Provider] - 3 Days Discharge Disposition: HOME SELF-CARE
--- NOTE | 2020-06-10 12:50 | P.HPIM ---
History of Present Illness 35-year-old the female came in with compensative shortness of breath is admitted for asthma exacerbation patient the he saturating well on room air patient was comparing of cough with daily sputum production patient was on azithromycin without any significant improvement patient was concerned about covid which was negative. She does smoke about one pack of cigarettes a day. Patient had a chest x-ray did not show any significant abnormality. Patient doesn't use any oxygen at home Review of Systems REVIEW OF SYSTEMS: CONSTITUTIONAL: No fever, no malaise, no fatigue. HEENT: No recent visual problems or hearing problems. Denied any sore throat. CARDIOVASCULAR: No chest pain, orthopnea, PND, no palpitations, no syncope. PULMONARY: As mentioned in HPI GASTROINTESTINAL: No diarrhea, no nausea, no vomiting, no abdominal pain. NEUROLOGICAL: No headaches, no weakness, no numbness. HEMATOLOGICAL: Denies any bleeding or petechiae. GENITOURINARY: Denies any burning micturition, frequency, or urgency. MUSCULOSKELETAL/RHEUMATOLOGICAL: Denies any joint pain, swelling, or any muscle pain. ENDOCRINE: Denies any polyuria or polydipsia. The rest of the 14-point review of systems is negative. Past Medical History Past Medical History: Asthma, CVA/TIA, Fibromyalgia, GERD/Reflux, Hypertension Additional Past Medical History / Comment(s): hx. ovarian cysts, [id number] term memory issues,tinnitus,ocular migraines, narcolepsy, recent problems w/abd. pain & one time coffee ground emesis, just finished antibiotic-abd. pain improved History of Any Multi-Drug Resistant Organisms: None Reported Past Surgical History: Section, Cholecystectomy, Tubal Ligation Additional Past Surgical History / Comment(s): x3 Past Anesthesia/Blood Transfusion Reactions: Motion Sickness Past Psychological History: Anxiety, Depression Smoking Status: Current every day smoker Past Alcohol Use History: Occasional Additional Past Alcohol Use History / Comment(s): 1ppd, has smoked 17 yrs. Past Drug Use History: None Reported - Past Family History Mother Family Medical History: Diabetes Mellitus, Hypertension Father Family Medical History: Cancer Additional Family Medical History / Comment(s): Lung CA Medications and Allergies Home Medications Medication Instructions Recorded Confirmed Type Promethazine [Phenergan] 25 mg PO BID PRN 12/04/15 06/10/20 History Beclomethasone Dipropionate [Qvar 1 puff INHALATION RT-BID 02/06/16 06/10/20 History 80 mcg] Dextroamphetamine/Amphetamine 10 mg PO QID 10/11/17 06/10/20 History [Adderall] Lisinopril-Hctz 10-12.5 mg 1 tab PO DAILY 10/11/17 06/10/20 History [Zestoretic 10-12.5] Albuterol Inhaler [Ventolin Hfa 2 puff INHALATION RT-QID PRN #1 06/10/20 Rx Inhaler] inhaler Albuterol Sulfate [Ventolin HFA] 1 - 2 puff INHALATION RT-Q4H PRN 06/10/2006/10 History Amitriptyline HCl [Elavil] 100 mg PO HS 06/10/20 06/10/20 History Cefuroxime Axetil [Ceftin] 500 mg PO BID 4 Days #8 tab 06/10/20 Rx Desvenlafaxine [Pristiq ER] 100 mg PO DAILY 06/10/20 06/10/20 History Famotidine [Pepcid] 20 mg PO BID #30 tablet 06/10/20 Rx Hyoscyamine Sulfate [Levsin] 0.125 mg PO TID PRN 06/10/20 06/10/20 History Levothyroxine Sodium [Synthroid] 50 mcg PO DAILY 06/10/20 06/10/20 History Metoprolol Tartrate [Lopressor] 25 mg PO BID 06/10/20 06/10/20 History Mometasone/Formoterol [Dulera 100 1 puff PO BID #1 inhaler 06/10/20 Rx Mcg-5 Mcg Inhaler] Omeprazole [PriLOSEC] 40 mg PO DAILY 06/10/20 06/10/20 History clonazePAM [KlonoPIN] 1 mg PO HS 06/10/20 06/10/20 History predniSONE 10 mg PO DAILY #15 tab 06/10/20 Rx Allergies Allergy/AdvReac Type Severity Reaction Status Date / Time sumatriptan [From Imitrex] Allergy told Verified 06/10/20 08:48 caused her stroke Physical Exam Vitals: Vital Signs Temp Pulse Pulse Resp BP BP Pulse Ox 06/10/20 12:19 99.3 F 90 24 118/75 96 06/10/20 09:17 98.7 F 80 18 142/81 99 06/10/20 09:06 98.6 F 77 18 130/99 98 06/10/20 07:43 73 18 131/88 98 06/10/20 06:00 74 18 130/85 95 06/10/20 05:00 73 18 06/10/20 04:28 20 06/10/20 04:00 73 18 112/73 95 06/10/20 02:55 98.4 F 73 18 133/86 97 Intake and Output 06/09/20 06/10/20 06/10/20 22:59 06:59 14:59 Intake Total 240 Balance 240 Intake: Oral 240 Other: Weight 65.771 kg 67.1 kg PHYSICAL EXAMINATION: GENERAL: The patient is alert and oriented x3, not in any acute distress. Well developed, well nourished. HEENT: Pupils are round and equally reacting to light. EOMI. No scleral icterus. No conjunctival pallor. Normocephalic, atraumatic. No pharyngeal erythema. No thyromegaly. CARDIOVASCULAR: S1 and S2 present. No murmurs, rubs, or gallops. PULMONARY: Chest is clear to auscultation, no wheezing or crackles. ABDOMEN: Soft, nontender, nondistended, normoactive bowel sounds. No palpable or ganomegaly. MUSCULOSKELETAL: No joint swelling or deformity. EXTREMITIES: No cyanosis, clubbing, or pedal edema. NEUROLOGICAL: Gross neurological examination did not reveal any focal deficits. SKIN: No rashes. Results CBC & Chem 7: 06/10/20 03:18 06/10/20 03:18 Labs: Abnormal Lab Results - Last 24 Hours (Table) 06/10/20 Range/Units 03:18 Chloride 108 H (98-107) mmol/L Carbon Dioxide 21 L (22-30) mmol/L Glucose 116 H (74-99) mg/dL Magnesium 2.4 H (1.6-2.3) mg/dL ALT 38 H (4-34) U/L C-Reactive Protein 20.9 H (<10.0) mg/L Thrombosis Risk Factor Assmnt - Choose All That Apply Any of the Below Risk Factors Present?: No Other Risk Factors: No Other congenital or acquired thrombophilia - If yes, enter type in comment: No Thrombosis Risk Factor Assessment Level: Very Low Risk Assessment and Plan Plan: -Bactrim bronchitis: Patient will be discharged on for more days of Ceftin patient will be given a dose of Rocephin here. Patient appears to have severe bronchitis. -Acute asthma exacerbation. Patient will be discharged on chart course of steroids patient will be given prescription for albuterol as well as inhaled steroids when she is done with the systemic steroids -Nicotine use: Counseling was provided -For fibromyalgia -Hypertension -Gastroesophageal reflux disease Patient will be discharged today as mentioned above.
== END 2020-06-10 14:15 | disposition home or self-care (01) ==
LOC: EC 02:53 → 6NMEDSUR 04:47 → 6PED 08:34
PROVIDERS: ADMIT Hospitalist; ATTEND Hospitalist
DX: J45.901 Unspecified asthma with (acute) exacerbation (principal); M79.7 Fibromyalgia; I10 Essential (primary) hypertension; K21.9 Gastro-esophageal reflux disease without esophagitis; I69.311 Memory deficit following cerebral infarction; H93.19 Tinnitus, unspecified ear; G43.809 Other migraine, not intractable, without status migrainosus; G47.419 Narcolepsy without cataplexy; F41.9 Anxiety disorder, unspecified; F32.9 Major depressive disorder, single episode, unspecified; F17.200 Nicotine dependence, unspecified, uncomplicated; Z20.828 Contact with and (suspected) exposure to other viral communicable diseases; Z79.899 Other long term (current) drug therapy; Z79.51 Long term (current) use of inhaled steroids; Z88.8 Allergy status to other drugs, medicaments and biological substances; Z87.42 Personal history of other diseases of the female genital tract; Z98.890 Other specified postprocedural states; Z90.49 Acquired absence of other specified parts of digestive tract; Z98.51 Tubal ligation status; Z87.898 Personal history of other specified conditions; Z71.6 Tobacco abuse counseling; Z83.3 Family history of diabetes mellitus; Z82.49 Family history of ischemic heart disease and other diseases of the circulatory system; Z80.1 Family history of malignant neoplasm of trachea, bronchus and lung
CPT/HCPCS: 96365; 96361; 96375; 99285; 36415; 94640 ×2; 93005; 80053; 82728; 83605; 83615; 83735; 85025; 86140; 87040; 87635; 71045; G0378; J2930; J0696; J7512

== ENCOUNTER → 2020-08-14 | Outpatient (CLI) | payer OTHER ==
--- NOTE | 2020-08-14 22:52 | SFUN ---
SLEEP CENTER FOLLOW UP NOTE DATE OF SERVICE: 08/14/2020 This 35-year-old lady has been followed in Sleep Center for treatment of narcolepsy and also some abnormal movements during sleep; possible REM sleep behavioral disorder. The patient is on treatment with Adderall. She is taking 15 mg early in the morning, then 15 mg at noon, and 10 mg at 3 p.m. With this regimen, the patient feels better. Sometimes she still feels sleepiness, but she "manages it during the day." [place] Sleepiness Scale today is 18. Patient is on the medications with beta shahzad and lisinopril for controlling her hypertension. The patient is also on Klonopin 1 mg at bedtime to control her sleep and for abnormal movements during sleep. She still may have some movements, but not so significant as before; in acceptable range. MEDICATIONS: 1. Adderall 10 mg 4 tablets a day. 2. Clonazepam 1 mg at bedtime. 3. Hyoscyamine 0.125 mg on p.r.n. basis. 4. Lisinopril/hydrochlorothiazide 10/12.5 mg once a day. 5. Metoprolol 25 mg twice a day. 6. Nortriptyline 100 mg at bedtime. 7. Omeprazole 40 mg once a day. 8. Qvar 80 mcg. 9. Promethazine 25 mg on p.r.n. basis. 10. 20 mg once a day. 11.Ventolin 90 mcg on p.r.n. basis. 12.Wellbutrin 150 mg once a day. 13.Dulera on p.r.n. basis. Patient continues to smoke one pack a day. PHYSICAL EXAMINATION: GENERAL: A pleasant patient in no distress. VITAL SIGNS: BP 116/78, HR 85, RR 12, height 5 feet 5 inches, weight 154.8, temperature 98.2, oxygen saturation at room air 95%. HEENT: PERRLA, EOMI. Evaluation of oropharynx showed tongue protrudes midline. NECK: Supple. No JVD. Thyroid is not palpable. LUNGS: Clear to percussion and to auscultation. Good air exchange. No wheezing or rhonchi. HEART: S1, S2 regular. No murmurs, gallops or rubs. ABDOMEN: Soft and nontender. Bowel sounds are present. No organomegaly appreciated. EXTREMITIES: No clubbing or cyanosis. CERTIFIED ALCOHOL COUNSELOR: Awake, alert, and oriented X3. Cranial nerves 2 to 7 intact. There is no fasciculation or atrophy. noted. No focal deficits observed. IMPRESSION: 1. Narcolepsy, type 1, mostly under control with Adderall. 2. History of hemorrhagic stroke in 2017. 3. Positive episodes of sleep paralysis. 4. History of some abnormal [id number] arm movements during sleep, possibly REM sleep behavioral disorder, improved on Klonopin. 5. Back problems. 6. Acid reflux. 7. Hypertension. 8. Migraine. 9. Asthma. PLAN: 1. Patient will continue to take Adderall 15 mg in the morning, 15 mg at noon time and 10 mg at 3 p.m. 2. Patient will continue to take Klonopin 1 mg at bedtime. 3. Precautions related to driving. No driving if feeling any sleepiness. 4. Sleep hygiene with regular time in bed for at least 7-1/2 to 8 hours. 5. Daytime naps permitted. Thank you very much for allowing me to participate in the management of your patient. Sincerely, Ad Lanza MD, PhD, FAASM Diplomat of [employer] [employer] [employer] Customer Support Assistant of [facility] [place] MMODL / IJN: [id number] /
== END | disposition home or self-care (01) ==
LOC: SLEEP 12:01
PROVIDERS: ATTEND Internal Medicine
DX: G47.419 Narcolepsy without cataplexy (principal); M47.9 Spondylosis, unspecified; K21.9 Gastro-esophageal reflux disease without esophagitis; I10 Essential (primary) hypertension; G43.909 Migraine, unspecified, not intractable, without status migrainosus; J45.909 Unspecified asthma, uncomplicated; Z79.899 Other long term (current) drug therapy; Z79.51 Long term (current) use of inhaled steroids; Z86.73 Personal history of transient ischemic attack (TIA), and cerebral infarction without residual deficits; Z86.59 Personal history of other mental and behavioral disorders

== ENCOUNTER → 2021-11-12 | Outpatient (CLI) | payer OTHER ==
--- NOTE | 2021-11-12 16:48 | US ---
EXAMINATION TYPE: US transvaginal DATE OF EXAM: 11/12/2021 COMPARISON: US pelvis September 21, 2019. CT abdomen and pelvis 2014 CLINICAL HISTORY: N94.6 Dysmenorrhea, unspecified. Heavy menstrual cycles and a couple in one month; ; c section x 3; tubal ligation; Left pelvic pain with probe aimed at Left ovary and adnexa. TECHNIQUE: TV US. Transvaginal sonographic images were medically necessary to better assess the fo llowing anatomy: endometrium and ovaries Date of LMP: 2 weeks ago EXAM MEASUREMENTS: Uterus: 7.6 x 5.3 x 4.0 cm Endometrial Stripe: 0.4 cm Right Ovary: 3.4 x 2.2 x 1.4 cm Left Ovary: 6.9 x 4.7 x 4.6 cm 1. Uterus: C section scar is noted; Couple of Nabothian Cysts imaged in cervix with larger = 0.6 x 0.7 x 0.5cm; heterogeneous appearance to myometrium. 2. Endometrium: anechoic fluid seen in upper endometrium = 0.4 x 1.3 x 0.4cm, then hyperechoic solid area noted mid upper endometrium, but no associated color flow or stalk is seen and may be related t o hyperechoic blood as is on menstrual cycle now. 3. Right Ovary: multiple small follicles seen 4. Left Ovary: abnormally enlarged with adjacent cysts noted with larger complex cyst = 6.4 x 3.9 x 3.7cm. Spectral, color and waveform Doppler imaging shows good arterial and venous flow within the left ov chastity at area of pain; there is no evidence for ovarian torsion. 5. Bilateral Adnexa: wnl 6. Posterior cul-de-sac: free fluid seen = 2.4 x 2.0 x 1.1cm Small amount of free fluid in pelvic cul-de-sac. Heterogeneous uterus. Small amount of fluid in the e ndometrial canal. Right ovary normal in size. Left ovary has 6.4 x 3.9 x 3.7 cm nonsimple cyst with internal reticular pattern and no color flow thought to reflect hemorrhagic cyst. O-RADS 2 lesion. IMPRESSION: Suspected new 6.4 cm hemorrhagic cyst within the left ovary.
== END | disposition home or self-care (01) ==
LOC: RADUSWWP 15:43
PROVIDERS: ATTEND Family Medicine
DX: N94.6 Dysmenorrhea, unspecified (principal)
CPT/HCPCS: 76830

== ENCOUNTER → 2021-12-16 | Outpatient (CLI) | payer OTHER ==
--- NOTE | 2021-12-16 18:31 | SFUN ---
SLEEP CENTER FOLLOW UP NOTE DATE OF SERVICE: 12/16/2021 This 36-year-old lady has been followed in Sleep Center for treatment of narcolepsy and possible REM sleep behavioral disorder. Currently the patient is on treatment with Adderall 40 mg a day. With this regimen, she continues to feel sleepiness. [place] Sleepiness Scale today is in very high range at 22. Sometimes she feels sleepy while driving. She is on Klonopin 1 mg at bedtime to control her abnormal movements during sleep. No significant problem recently. MEDICATIONS: Adderall 10 mg 4 tablets a day, clonazepam 1 mg at bedtime, lisinopril/hydrochlorothiazide 10/12.5 mg once a day, metoprolol 25 mg twice a day, nortriptyline 100 mg at bedtime, omeprazole 40 mg once a day, Qvar mcg, promethazine 25 mg on p.r.n. basis, Ventolin 90 mcg on p.r.n. basis, Wellbutrin 150 mg once a day, Zofran 4 mg once a day, Trintellix 20 mg, levothyroxine 50 mcg once a day. PHYSICAL EXAMINATION: GENERAL: Pleasant 36-year-old lady without distress. VITAL SIGNS: BP 114/70, HR 90, RR 16, height 5 feet 5 inches, weight 148.8 pounds, body mass index 24.9, temperature 97.4, oxygen saturation at room air 99%. HEENT: PERRLA, EOMI, evaluation of oropharynx showed tongue protrudes midline. NECK: Supple, no JVD. Thyroid is not palpable. LUNGS: Clear to percussion and to auscultation. Good air exchange. No wheezing or rhonchi. HEART: S1, S2 regular. No murmurs, gallops, or rubs. ABDOMEN: Soft and nontender. Bowel sounds are present. No organomegaly appreciated. EXTREMITIES: No clubbing or cyanosis. BATTERY ASSEMBLER DRY CELL: Awake, alert, and oriented X3. Cranial nerves 2 to 7 intact. There is no fasciculation or atrophy. noted. No focal deficits observed. IMPRESSION: 1. Narcolepsy, type 1. Patient still feels sleepy on 40 mg of Adderall. 2. History of hemorrhagic stroke in 2017. 3. Status post COVID-19 in May of 2021. She still has some changes in smell. 4. History of hemorrhagic stroke in 2017. 5. History of [id number] movements; possibly REM sleep behavioral disorder, under control with Klonopin. 6. Back problems. 7. Hypertension. 8. Acid reflux. 9. History of migraines. 10.Asthma. PLAN: 1. Increase dose of Adderall to 20 mg three times a day. 2. Continue Klonopin 1 mg at bedtime. 3. Precautions related to driving. No driving if feeling any sleepiness. 4. Sleep hygiene with regular time in bed for at least 8 hours. 5. Daytime naps permitted. Thank you very much for allowing me to participate in the management of your patient. Sincerely, Ad Lanza MD, PhD, FAASM Diplomat of [place] [employer] Specialties Sleep Medicine Board of [place] Board of Internal Medicine Micromatic Hone Operator of [facility] [place] MMODL / HANKN: [id number] /
== END ==
LOC: SLEEP 13:09
PROVIDERS: ATTEND Internal Medicine
DX: G47.419 Narcolepsy without cataplexy (principal); Z86.73 Personal history of transient ischemic attack (TIA), and cerebral infarction without residual deficits; Z86.16 Personal history of COVID-19; R43.9 Unspecified disturbances of smell and taste; I10 Essential (primary) hypertension; K21.9 Gastro-esophageal reflux disease without esophagitis; G43.909 Migraine, unspecified, not intractable, without status migrainosus; J45.909 Unspecified asthma, uncomplicated; Z79.899 Other long term (current) drug therapy; Z88.6 Allergy status to analgesic agent; F17.200 Nicotine dependence, unspecified, uncomplicated

== ENCOUNTER → 2022-04-08 | Outpatient (CLI) | payer OTHER ==
--- NOTE | 2022-04-08 13:42 | P.PN ---
Subjective DATE: 04/08/2022 FOLLOW UP VISIT. Patient returned to sleep center for follow-up visit related to treatment of significant excessive daytime sleepiness secondary to narcolepsy and possible REM sleep behavior disorder. Presently patient is on treatment with Adderall 20 mg 3 times a day. With this regimen patient is able to control sure alertness during the day pretty well. .[place] sleepiness scale is 11, which have been decreased from 22 during last visit. Patient is on clonazepam 1 mg at bedtime for control sure abnormal movements. No problems with sleep at the present time. MEDICATIONS:1. Trintellix 20 mg once a day 2. Adderall 20 mg 3 times a day 3. Klonopin 1 mg at bedtime 4. Nortriptyline 100 mg at bedtime 5. Lisinopril/hydrochlorothiazide 10-125 milligrams twice a day 6. Metoprolol 25 mg twice a day 7. Omeprazole 40 mg 8. Levothyroxine 50 g once a day 9. Wellbutrin 150 mg once a day 10. Ventolin as needed During physical exam: GENERAL: A pleasant patient without any distress. VITAL SIGNS: BP 135/85, HR 99, RR 16 , weight 155, temperature 97.0, oxygen saturation at room air 99% . HEENT: PERRLA, EOMI. NECK: Supple. No JVD. LUNGS: Clear to percussion and to auscultation. Good air exchange. No wheezing or rhonchi. HEART: S1, S2 regular. ABDOMEN: Soft and nontender. EXTREMITIES: No clubbing or cyanosis. MANAGER UNIX: Awake, alert, and oriented x3. No focal deficit. Impressions: 1. Narcolepsy type I. Patient feels well on Adderall 20 mg 3 times a day. 2. History of possible REM sleep behavioral disorder, on control with Klonopin.. 3. Status post the COVID-19 in May 2021. 4. History of hemorrhagic stroke in 2017. 5. Hypertension. 6. Back problems. 7. Acid reflux. 8. Asthma. 9. History of migraines. Plan: 1. Patient will continue treatment with Adderall 20 mg 3 times a day and clonazepam 1 mg at bedtime. 2. Sleep hygiene with regular time in bed for at least 8 hours. 3. Daytime naps permitted 4. Precautions related to driving. No driving if feel any sleepiness. Patient is aware about civil and criminal liability for unsafe driving, promised to follow recommendations. 5. Follow up visit in 4-6 months or earlier if patient has any problems. Thank you very much for allowing me to participate in the management of your patient. Ad Lanza MD, PhD, FAASM. Diplomat of [place] Board of Sleep Medicine, Sleep Medicine Board by [place] [employer] Medicine Crepe Box Tender of [facility] [place]
== END ==
LOC: SLEEP 13:08
PROVIDERS: ATTEND Internal Medicine
DX: G47.419 Narcolepsy without cataplexy (principal); I10 Essential (primary) hypertension; M53.80 Other specified dorsopathies, site unspecified; K21.9 Gastro-esophageal reflux disease without esophagitis; Z86.16 Personal history of COVID-19; Z86.73 Personal history of transient ischemic attack (TIA), and cerebral infarction without residual deficits; J45.909 Unspecified asthma, uncomplicated; G43.909 Migraine, unspecified, not intractable, without status migrainosus; Z79.899 Other long term (current) drug therapy; Z88.6 Allergy status to analgesic agent; F17.200 Nicotine dependence, unspecified, uncomplicated

== ENCOUNTER → 2022-10-20 | Outpatient (CLI) | payer OTHER ==
--- NOTE | 2022-10-20 14:11 | P.PN ---
Subjective DATE: 10/20/2022 FOLLOW UP VISIT. Patient returned to sleep center for follow-up visit related to treatment of significant excessive daytime sleepiness secondary to narcolepsy. Patient is on treatment with Adderall 20 mg 3 times a day. Patient is able to control sure alertness with this regimen of medication. . [place] sleepiness scale is significantly increased to 20. MEDICATIONS:1. Adderall 20 mg 3 times a day 2. Klonopin 1 mg at bedtime 3. Nortriptyline 100 mg at bedtime 4. Lisinopril/hydrochlorothiazide 10-12.5 mg once a day 5 Metoprolol 25 mg twice a day] 6 Omeprazole 40 mg once a day] 7 Ventolin] 8 Levothyroxine 50 g once a day] During physical exam: GENERAL: A pleasant patient without any distress. VITAL SIGNS: BP156/97], HR96], RR 12 , weigh 161.8], cnppkxgluwf89.8], oxygen saturation at room ai 97 . HEENT: PERRLA, EOMI. NECK: Supple. No JVD. LUNGS: Clear to percussion and to auscultation. Good air exchange. No wheezing or rhonchi. HEART: S1, S2 regular. ABDOMEN: Soft and nontender. EXTREMITIES: No clubbing or cyanosis. ENVIRONMENTAL SAFETY SPECIALIST: Awake, alert, and oriented x3. No focal deficit. Impressions: 1. Narcolepsy type I] 2. History of possible REM sleep behavior disorder, on control with clonazepam . 3. History of hemorrhagic stroke in 2017]. 4. Hypertension]. 5. Asthma]. 6. Back problems]. 7. Acid reflux]. 8. History of migraines]. 9. Status post COVID-19 in 2020]. Plan: 1. Patient will continue treatment with[] Adderall 20 mg 3 times a day and clonazepam 1 mg at bedtime . 2. Sleep hygiene with regular time in bed for at least 8 hours. 3. Daytime naps permitted 4. Precautions related to driving. No driving if feel any sleepiness. Patient is aware about civil and criminal liability for unsafe driving, promised to follow recommendations. 5. Follow up visit in 4-6 months or earlier if patient has any problems. Thank you very much for allowing me to participate in the management of your patient. Ad Lanza MD, PhD, FAASM. Diplomat of [place] Board of Sleep Medicine, Sleep Medicine Board by [place] Board of Internal Medicine Hemodialysis Patient Care Specialist of [facility] [place]
== END ==
LOC: SLEEP 13:07
PROVIDERS: ATTEND Internal Medicine
DX: G47.419 Narcolepsy without cataplexy (principal); I10 Essential (primary) hypertension; J45.909 Unspecified asthma, uncomplicated; K21.9 Gastro-esophageal reflux disease without esophagitis; Z86.73 Personal history of transient ischemic attack (TIA), and cerebral infarction without residual deficits; M54.9 Dorsalgia, unspecified; F41.9 Anxiety disorder, unspecified; G43.909 Migraine, unspecified, not intractable, without status migrainosus; Z86.16 Personal history of COVID-19; Z99.89 Dependence on other enabling machines and devices; Z79.899 Other long term (current) drug therapy; Z88.8 Allergy status to other drugs, medicaments and biological substances; F17.200 Nicotine dependence, unspecified, uncomplicated
CPT/HCPCS: 99212

== ENCOUNTER → 2023-04-27 | Outpatient (CLI) | payer OTHER ==
--- NOTE | 2023-04-27 18:35 | P.PN ---
Subjective DATE: 04/27/2023 FOLLOW UP VISIT. Patient returned to sleep center for follow-up visit related to treatment of significant excessive daytime sleepiness secondary to narcolepsy. Patient is on treatment with Adderall 20 mg 3 times a day. With this regimen patient is able to control sure alertness during the day. . [place] sleepiness scale is increased to 16. MEDICATIONS:1. Adderall 20 mg 3 times a day 2. Clonazepam 1 mg once a day 3. Flexeril 5 mg twice a day 4. Levothyroxine 50 g once a day 5. Nortriptyline 100 mg once a day 6. Omeprazole 40 mg once a day 7. Ventolin 8. Wellbutrin 150 mg once a day During physical exam: GENERAL: A pleasant patient without any distress. VITAL SIGNS: BP 143/96, HR 99, RR 16 , weight 148.2, temperature 98.0, oxygen saturation at room air 98% . HEENT: PERRLA, EOMI. NECK: Supple. No JVD. LUNGS: Clear to percussion and to auscultation. Good air exchange. No wheezing or rhonchi. HEART: S1, S2 regular. ABDOMEN: Soft and nontender. EXTREMITIES: No clubbing or cyanosis. BOOTMAKER: Awake, alert, and oriented x3. No focal deficit. Impressions: 1. Narcolepsy type I 2. History of possible REM sleep behavior disorder, on control with clonazepam. 3. Hypertension. 4. History of hemorrhagic stroke in 2017. 5. Asthma. 6. Acid reflux. 7. Back problems. 8. History of migraines. 9. Status post coronary 19. Plan: 1. Patient will continue treatment with Adderall 20 mg 3 times a day and clonazepam 1 mg at bedtime 2. Sleep hygiene with regular time in bed for at least 8 hours. 3. Daytime naps permitted 4. Precautions related to driving. No driving if feel any sleepiness. Patient is aware about civil and criminal liability for unsafe driving, promised to follow recommendations. 5. Follow up visit in 4-6 months or earlier if patient has any problems. Thank you very much for allowing me to participate in the management of your patient. Ad Lanza MD, PhD, FAASM. Diplomat of [place] Board of Sleep Medicine, Sleep Medicine Board by [place] Board of Internal Medicine Marine Mechanic of [facility] [place]
== END ==
LOC: 3 N SLEEP 14:07
PROVIDERS: ATTEND Internal Medicine
DX: G47.419 Narcolepsy without cataplexy (principal); I10 Essential (primary) hypertension; J45.909 Unspecified asthma, uncomplicated; K21.9 Gastro-esophageal reflux disease without esophagitis; M51.9 Unspecified thoracic, thoracolumbar and lumbosacral intervertebral disc disorder; F17.200 Nicotine dependence, unspecified, uncomplicated; G40.909 Epilepsy, unspecified, not intractable, without status epilepticus; Z79.890 Hormone replacement therapy; Z86.73 Personal history of transient ischemic attack (TIA), and cerebral infarction without residual deficits; Z95.1 Presence of aortocoronary bypass graft; Z88.8 Allergy status to other drugs, medicaments and biological substances; Z79.51 Long term (current) use of inhaled steroids
CPT/HCPCS: 99212

== ENCOUNTER → 2023-10-26 | Outpatient (CLI) | payer OTHER ==
--- NOTE | 2023-10-27 12:56 | US ---
EXAMINATION TYPE: US abdomen complete DATE OF EXAM: 10/26/2023 COMPARISON: NONE CLINICAL INDICATION: Female, 38 years old with history of R10.11 ABD PAIN R10.13 EPIGASTRIC PAIN; Epi gastric pain. GB removed. TECHNIQUE: Multiple sonographic images of the abdomen are obtained. FINDINGS: EXAM MEASUREMENTS: Liver Length: 14.4 cm CBD: 0.5 cm Spleen: 12.6 cm Right Kidney: 10.9 x 5.0 x 3.4 cm Left Kidney: 11.2 x 5.3 x 4.9 cm Pancreas: wnl Liver: wnl Gallbladder: Surgically absent Evidence for sonographic Mena's sign: neg CBD: wnl Spleen: wnl Right Kidney: No hydronephrosis or masses seen Left Kidney: No hydronephrosis or masses seen Upper IVC: wnl Abd Aorta: No AAA visualized at time of scan IMPRESSION: 1. No acute process. 2. Post cholecystectomy 3. Borderline splenomegaly.
== END | disposition home or self-care (01) ==
LOC: RADUSWWP 07:01
PROVIDERS: ATTEND Family Medicine
DX: R10.11 Right upper quadrant pain (principal); R10.13 Epigastric pain; Z90.49 Acquired absence of other specified parts of digestive tract
CPT/HCPCS: 76700

== ENCOUNTER → 2023-11-22 | Outpatient (CLI) | payer OTHER ==
--- NOTE | 2023-11-22 12:51 | XR ---
EXAMINATION TYPE: XR abdomen 1V DATE OF EXAM: 11/22/2023 Comparison: None Clinical History: 38-year-old female R109 ABD PAIN Findings: Cholecystectomy clips. Scattered mild to moderate stool. No dilated small bowel. Lung bases are clear . No suspicious calcifications are seen. Multiple left-sided pelvic fluid lungs. Impression: No evidence for bowel obstruction. [id number] stool. Previous cholecystectomy.
== END | disposition home or self-care (01) ==
LOC: RADXRMAIN 11:56
PROVIDERS: ATTEND Nurse Practitioner Family
DX: R10.9 Unspecified abdominal pain (principal); Z90.49 Acquired absence of other specified parts of digestive tract
CPT/HCPCS: 74018

== ENCOUNTER → 2023-12-01 | Outpatient (CLI) | payer OTHER ==
--- NOTE | 2023-12-01 15:59 | P.PROGSL ---
Subjective DATE: 12/01/2023 FOLLOW UP VISIT. Patient returned to sleep center for follow-up visit related to treatment of significant excessive daytime sleepiness secondary to narcolepsy. Patient is on treatment with Adderall 20 mg 3 times a day. With this medication she is able to control her alertness during the day. No any side effects of Adderall. No episodes of palpitations, no jittering. [place] sleepiness scale is 13, which is slightly above normal range. Patient is on treatment with clonazepam 1 mg at bedtime to prevent any abnormal movements during the sleep including possible REM sleep behavioral disorder. No recent problems. MEDICATIONS: Please see below. During physical exam: GENERAL: A pleasant patient without any distress. VITAL SIGNS: Please see below. HEENT: PERRLA, EOMI. NECK: Supple. No JVD. LUNGS: Clear to percussion and to auscultation. Good air exchange. No wheezing or rhonchi. HEART: S1, S2 regular. ABDOMEN: Soft and nontender. EXTREMITIES: No clubbing or cyanosis. COLD PRESS LOADER: Awake, alert, and oriented x3. No focal deficit. Impressions: 1. Narcolepsy type I 2. History of possible REM sleep behavior disorder, no recent problems while on treatment with clonazepam. 3. Hypertension. 4. History of hemorrhagic stroke in 2017. 5. Asthma. 6. Acid reflux. 7. Back problems. 8. History of migraines. 9. Status post COVID-19. Plan: 1. Patient will continue treatment with Adderall 20 mg 3 times a day and clonazepam 1 mg at bedtime. 2. Sleep hygiene with regular time in bed for at least 8 hours. 3. Daytime naps permitted 4. Precautions related to driving. No driving if feel any sleepiness. Patient is aware about civil and criminal liability for unsafe driving, promised to follow recommendations. 5. Follow up visit in 4-6 months or earlier if patient has any problems. Thank you very much for allowing me to participate in the management of your patient. Ad Lanza MD, PhD, FAASM. Diplomat of [place] Board of Sleep Medicine, Sleep Medicine Board by [place] Board of Internal Medicine Barrel Rifler Hook of [facility] [place] Objective - Vital Signs Vital Signs: Vital Signs Temp 97.9 F 12/01/23 15:36 Pulse 86 12/01/23 15:36 Resp 16 12/01/23 15:36 BP 141/84 12/01/23 15:36 Pulse Ox 99 12/01/23 15:36 FiO2 Intake & Output 11/30/23 12/01/23 12/01/23 18:59 06:59 18:59 Weight 63.957 kg Home Medications: Home Medications Medication Instructions Recorded Confirmed Type Promethazine [Phenergan] 25 mg PO BID PRN 12/04/15 06/10/20 History Beclomethasone Dipropionate [Qvar 1 puff INHALATION RT-BID 02/06/16 12/01/23 History 80 mcg] Dextroamphetamine/Amphetamine 10 mg PO QID 10/11/17 06/10/20 History [Adderall] Lisinopril-Hctz 10-12.5 mg 1 tab PO DAILY 10/11/17 12/01/23 History [Zestoretic 10-12.5] Albuterol Inhaler [Ventolin Hfa 2 puff INHALATION RT-QID PRN #1 06/10/20 Rx Inhaler] inhaler Albuterol Sulfate [Ventolin HFA] 1 - 2 puff INHALATION RT-Q4H PRN 06/10/20 12/01/23 History Amitriptyline HCl [Elavil] 100 mg PO HS 06/10/20 06/10/20 History Desvenlafaxine [Pristiq ER] 100 mg PO DAILY 06/10/20 06/10/20 History Hyoscyamine Sulfate [Levsin] 0.125 mg PO TID PRN 06/10/20 12/01/23 History Levothyroxine Sodium [Synthroid] 50 mcg PO DAILY 06/10/20 12/01/23 History Metoprolol Tartrate [Lopressor] 25 mg PO BID 06/10/20 12/01/23 History Mometasone/Formoterol [Dulera 100 1 puff PO BID #1 inhaler 06/10/20 12/01/23 Rx Mcg-5 Mcg Inhaler] Omeprazole [PriLOSEC] 40 mg PO DAILY 06/10/20 12/01/23 History cefUROXime axetiL [Ceftin] 500 mg PO BID 4 Days #8 tab 06/10/20 Rx clonazePAM [KlonoPIN] 1 mg PO HS 06/10/20 12/01/23 History predniSONE 10 mg PO DAILY #15 tab 06/10/20 Rx Dextroamphetamine/Amphetamine 20 mg PO TID 3 Days #90 tab 05/26/23 12/01/23 Rx [Adderall] Nortriptyline HCl 100 mg PO DAILY 12/01/23 12/01/23 History Nortriptyline HCl [Pamelor] 25 mg PO HS 12/01/23 12/01/23 History buPROPion HCL [Wellbutrin SR] 150 mg PO DAILY 12/01/23 12/01/23 History
[2023-12-01 16:03] VITALS: BP 141/84; PULSE 86; RESP 16; TEMP 97.9
== END | disposition home or self-care (01) ==
LOC: 3 N SLEEP 15:17
PROVIDERS: ATTEND Internal Medicine
DX: G47.419 Narcolepsy without cataplexy (principal); G47.8 Other sleep disorders; I10 Essential (primary) hypertension; J45.909 Unspecified asthma, uncomplicated; K21.9 Gastro-esophageal reflux disease without esophagitis; M54.50 Low back pain, unspecified; G43.909 Migraine, unspecified, not intractable, without status migrainosus; F17.200 Nicotine dependence, unspecified, uncomplicated; U09.9 Post COVID-19 condition, unspecified; Z88.6 Allergy status to analgesic agent
CPT/HCPCS: 99212

== ENCOUNTER → 2024-02-10 | Outpatient (CLI) | payer OTHER ==
--- NOTE | 2024-02-10 10:09 | US ---
EXAMINATION TYPE: US abdomen complete DATE OF EXAM: 02/10/2024 COMPARISON: Doppler ultrasound 10/26/2023 CLINICAL INDICATION: Female, 38 years old with history of R74.01 ELEVATION OF LIVER TRANSAMINASE LEVE LS; RUQ/RLQ pain with nausea; Hx HTN and Cholecystectomy TECHNIQUE: Multiple sonographic images of the abdomen are obtained. FINDINGS: EXAM MEASUREMENTS: Liver Length: 14.2 cm Gallbladder Wall: Surgically absent cm CBD: 0.5 cm Spleen: 10.7 cm Right Kidney: 11.3 x 3.9 x 4.9 cm Left Kidney: 11.5 x 4.3 x 5.4 cm FIELD SUPERVISOR SEED PRODUCTION NOTES: Pancreas: Heterogenous Liver: wnl Gallbladder: Surgically absent CBD: wnl Spleen: wnl Right Kidney: wnl Left Kidney: wnl Upper IVC: wnl Abd Aorta: wnl The liver is heterogenous without focal lesion identified. No surface nodularity to suggest cirrhosis . The intrahepatic portion of the IVC and proximal abdominal aorta are within normal limits. The gall bladder is surgically absent. Common bile duct is unremarkable. The visualized portions of the panc reas are homogenous. The spleen is unremarkable. Kidneys are symmetric and free of hydronephrosis. No renal lesions are seen. IMPRESSION: 1. Nonspecific heterogenous appearance of the liver without focal lesion. May represent hepatocellula r disease. 2. Postcholecystectomy changes.
== END | disposition home or self-care (01) ==
LOC: RADUSWWP 09:43
PROVIDERS: ATTEND Internal Medicine Gastroenterology
DX: R74.01 Elevation of levels of liver transaminase levels (principal); I10 Essential (primary) hypertension; R11.0 Nausea; R10.31 Right lower quadrant pain
CPT/HCPCS: 76700

== ENCOUNTER 2024-03-14 06:54 | Day surgery (SDC) | payer OTHER ==
[2024-03-14] MEDS ORDERED: LIDOCAINE 1% (10MG/ML) FOR IV START INTRADERMA PRN (07:03)
[2024-03-14 07:20] VITALS: TEMP 98.6
[2024-03-14] MEDS: LACTATED RINGERS 1,000 ML IV SCH (07:24)
[2024-03-14] MEDS: LACTATED RINGERS 1,000 ML IV ONE (07:24)
[2024-03-14] MEDS ORDERED: PROPOFOL 10 MG/ML 20 ML VIAL IV ONE (07:28)
[2024-03-14] MEDS ORDERED: LIDOCAINE 1% INJ 10MG/ML (20 ML MDV) ONE (07:28)
--- NOTE | 2024-03-14 07:46 | P.PCN ---
Date of Procedure: 03/14/24 Procedure(s) Performed: Brief history: Patient is a pleasant 39-year-old white female scheduled for an elective upper endoscopy as well as colonoscopy as a part of evaluation of abdominal pain, intermittent nausea vomiting, change in bowel habits for the last 1 year duration Procedure performed: Esophagogastroduodenoscopy with biopsy Colonoscopy Preoperative diagnosis: Normal pain/intermittent nausea vomiting Change in bowel habits Anesthesia: MAC Procedure: After informed consent was obtained from the patient was brought into the endoscopy unit and IV sedation was administered by anesthesia under continuous monitoring. Initially upper endoscopy was done. The Olympus GF 160 video endoscope was inserted inserted into the mouth and esophagus intubated without any difficulty and was gradually advanced into the stomach and duodenum and carefully examined. The bulb and second part of the duodenum appeared normal. Biopsies were done from the duodenum to evaluate for celiac disease. The scope was then withdrawn into the stomach adequately insufflated with air and upon careful examination the antrum and body, and mild diffuse gastritis and biopsies were done from this area. Mucosa cardia and fundus appeared normal. The scope was then withdrawn into the esophagus. The GE junction was located at 40 cm to the incisors. It appeared regular with no erythema erosions or ulcerations. Rest of the esophagus appeared normal. Patient tolerated the procedure well. At this time the patient continued to remain sedation. Initial digital rectal examination was normal. Olympus CF 160 video colonoscope was then inserted into the rectum and gradually advanced to the cecum without any difficulty. Careful examination was performed as the scope was gradually being withdrawn. The prep was excellent. The cecum, ascending colon, transverse colon, descending colon, sigmoid colon and rectum appeared normal. Retroflexion was performed in the rectum and no lesions were noted. Patient tolerated the procedure well. Impression: 1. Upper endoscopy revealed diffuse gastritis but no evidence of esophagitis or peptic ulcer disease 2. Colonoscopy was within normal limits with no evidence of colorectal neoplasia Recommendations: Findings of this examination were discussed with the patient as well as family. She was advised to follow-up the biopsy results. Continue current medications. Follow-up in the office in 2 to 3 weeks. Recommended repeat screening colonoscopy in 10 years.
[2024-03-14 08:00] VITALS: RESP 16
[2024-03-14 08:16] VITALS: BP 109/68; PULSE 68
== END 2024-03-14 08:26 | disposition home or self-care (01) ==
LOC: ORWHC2ENDO 06:54
PROVIDERS: ATTEND Internal Medicine Gastroenterology
DX: K29.50 Unspecified chronic gastritis without bleeding (principal); K29.80 Duodenitis without bleeding; R19.4 Change in bowel habit; I10 Essential (primary) hypertension; J45.909 Unspecified asthma, uncomplicated; F41.9 Anxiety disorder, unspecified; K21.9 Gastro-esophageal reflux disease without esophagitis; Z86.73 Personal history of transient ischemic attack (TIA), and cerebral infarction without residual deficits; Z79.51 Long term (current) use of inhaled steroids; Z79.899 Other long term (current) drug therapy; Z90.49 Acquired absence of other specified parts of digestive tract
CPT/HCPCS: 43239; 45378; 81025; 88305

== ENCOUNTER → 2024-04-11 | Outpatient (CLI) | payer OTHER ==
--- NOTE | 2024-04-11 12:29 | CT ---
EXAMINATION TYPE: CT chest w con CT DLP: 245.30 mGycm, Automated exposure control for dose reduction was used. DATE OF EXAM: 04/11/2024 12:15 PM COMPARISON: Chest radiograph 06/10/2020, CT chest 08/23/2010, no recent chest imaging was available. CLINICAL INDICATION:Female, 39 years old with history of R91.1 Solitary pulmonary nodule; PHH, Chest pain, rib pain, recent CXR showed nodules. TECHNIQUE: Multiple axial images were obtained through the chest following the administration of 100 cc of Isovue 300. . Coronal and sagittal reformats reviewed. FINDINGS: LUNGS/ PLEURA: The lung parenchyma appears unremarkable. No suspicious pulmonary nodule or mass. AIRWAY: Patent and unremarkable.. HEART: Size within normal limits. No pericardial effusion. MEDIASTINUM: No gross evidence of adenopathy. VASCULATURE: No aortic aneurysm. MUSCULOSKELETAL: No acute osseous abnormalities. No aggressive osseous lesion. SOFT TISSUES/LYMPH NODES: Unremarkable. LOWER NECK: No significant findings. UPPER ABDOMEN: Post cholecystectomy changes. IMPRESSION: No acute thoracic process. No suspicious pulmonary nodule or mass. No acute osseous abnormality. [facility], , 04/11/2024 12:27 PM
== END | disposition home or self-care (01) ==
LOC: RADCTMAIN 11:18
PROVIDERS: ATTEND Family Medicine
DX: R91.1 Solitary pulmonary nodule
CPT/HCPCS: 71260

== ENCOUNTER → 2024-06-07 | Outpatient (CLI) | payer OTHER ==
[2024-06-07 17:27] VITALS: BP 143/93; PULSE 82; RESP 16; TEMP 98.2
--- NOTE | 2024-06-07 17:38 | P.PROGSL ---
Subjective DATE: 06/07/2024 FOLLOW UP VISIT. Patient returned to sleep center for follow-up visit related to treatment of significant excessive daytime sleepiness secondary to narcolepsy. Patient is on treatment with Adderall 20 mg 3 times a day. With this regimen patient is able to control her alertness. She is on clonazepam 1 mg at bedtime to prevent any possible REM sleep behavioral disorder. No side effects of medications. [place] sleepiness scale is slightly increased to 12. MEDICATIONS: Adderall 20 mg 3 times a day, clonazepam 1 mg at bedtime, albuterol on as needed basis, Flexeril 5 mg as needed, levothyroxine once a day, lisinoprilhydrochlorothiazide 10-12.5 mg once a day, metoprolol 25 mg twice a day, nortriptyline 100 mg at bedtime, omeprazole 40 mg once a day, Wellbutrin 150 mg once a day, Ventolin inhaler as needed, multivitamins for woman During physical exam: GENERAL: A pleasant patient without any distress. VITAL SIGNS: Please see below. HEENT: PERRLA, EOMI. NECK: Supple. No JVD. LUNGS: Clear to percussion and to auscultation. Good air exchange. No wheezing or rhonchi. HEART: S1, S2 regular. ABDOMEN: Soft and nontender. EXTREMITIES: No clubbing or cyanosis. CALCIMINER: Awake, alert, and oriented x3. No focal deficit. Impressions: 1. Narcolepsy type I 2. History of REM sleep behavioral disorder, uncontrolled with clonazepam 1 mg at bedtime. 3. Hypertension. 4. History of hemorrhagic stroke in 2017. 5. Asthma. 6. Acid reflux. 7. Back problems. 8. History of migraines. 9. Status post COVID-19. Plan: 1. Patient will continue treatment with Adderall 20 mg 3 times a day and clonazepam 1 mg at bedtime 2. Sleep hygiene with regular time in bed for at least 8 hours. 3. Daytime naps permitted 4. Precautions related to driving. No driving if feel any sleepiness. Patient is aware about civil and criminal liability for unsafe driving, promised to follow recommendations. 5. Follow up visit in 4-6 months or earlier if patient has any problems. Thank you very much for allowing me to participate in the management of your patient. Ad Lanza MD, PhD, FAASM. Diplomat of [employer], Sleep Medicine Board by [employer] Last Rep[employer]r [employer] [place] Objective - Vital Signs Vital Signs: Vital Signs Temp 98.2 F 06/07/24 17:27 Pulse 82 06/07/24 17:27 Resp 16 06/07/24 17:27 BP 143/93 06/07/24 17:27 Pulse Ox 96 06/07/24 17:27 FiO2 Intake & Output 06/06/24 06/07/24 06/07/24 18:59 06:59 18:59 Weight 65.771 kg Home Medications: Home Medications Medication Instructions Recorded Confirmed Type Lisinopril-Hctz 10-12.5 mg 1 tab PO DAILY 10/11/17 03/14/24 History [Zestoretic 10-12.5] Albuterol Sulfate [Ventolin HFA] 1 - 2 puff INHALATION RT-Q4H PRN 06/10/20 03/14/24 History Hyoscyamine Sulfate [Levsin] 0.125 mg PO TID PRN 06/10/20 03/14/24 History Metoprolol Tartrate [Lopressor] 25 mg PO BID 06/10/20 03/14/24 History Mometasone/Formoterol [Dulera 100 1 puff PO BID #1 inhaler 06/10/20 03/14/24 Rx Mcg-5 Mcg Inhaler] Omeprazole [PriLOSEC] 40 mg PO DAILY 06/10/20 03/14/24 History clonazePAM [KlonoPIN] 1 mg PO HS 06/10/20 03/14/24 History Dextroamphetamine/Amphetamine 20 mg PO TID 3 Days #90 tab 05/26/23 03/14/24 Rx [Adderall] Nortriptyline HCl 100 mg PO HS 12/01/23 03/14/24 History buPROPion HCL [Wellbutrin SR] 150 mg PO DAILY 12/01/23 03/14/24 History
== END ==
LOC: 3 N SLEEP 16:17
PROVIDERS: ATTEND Internal Medicine
DX: G47.419 Narcolepsy without cataplexy (principal); I10 Essential (primary) hypertension; J45.909 Unspecified asthma, uncomplicated; K21.9 Gastro-esophageal reflux disease without esophagitis; G47.52 REM sleep behavior disorder; M53.9 Dorsopathy, unspecified; F17.200 Nicotine dependence, unspecified, uncomplicated; Z86.16 Personal history of COVID-19; Z86.69 Personal history of other diseases of the nervous system and sense organs; Z86.73 Personal history of transient ischemic attack (TIA), and cerebral infarction without residual deficits; Z88.8 Allergy status to other drugs, medicaments and biological substances; Z79.899 Other long term (current) drug therapy
CPT/HCPCS: 99212

== ENCOUNTER → 2024-07-16 | Outpatient (CLI) | payer OTHER ==
--- NOTE | 2024-07-19 22:08 | CT ---
EXAMINATION TYPE: CT abdomen pelvis wo con DATE OF EXAM: 07/16/2024 5:03 PM COMPARISON: 08/12/2014 CLINICAL INDICATION: Female, 39 years old with history of R10.84 Generalized abdominal pain, Chronic RLQ pain and pelvic pain throughout, getting worse. TECHNIQUE: Axial images were obtained from above the diaphragm to the pubic rami in the axial plane a t 5 mm thick sections. Reconstructed images are reviewed on the computer in the coronal plane. CONTRAST: mL of . Study performed with Oral Contrast DLP: 326.4 mGycm, Automated exposure control for dose reduction was used. FINDINGS: Limited CT sections are obtained the lung bases. The lung bases are clear. CT ABDOMEN: Liver: Normal Spleen: Normal Pancreas: Normal Adrenal glands: The adrenal glands are normal. Gallbladder: Surgically absent Kidneys: No masses are evident. There may be some minimal right hydronephrosis. No obstructing renal stones evident. No hydroureter evident. No cysts are present. No renal stones are evident. Aorta: Normal Inferior vena cava: Normal. CT PELVIS: Loops of bowel within the abdomen and pelvis are normal. There are loops of bowel which are incom pletely distended or lack oral contrast limiting their evaluation. Appendix: Normal as visualized. Urinary bladder: Normal. Genitourinary structures: Uterus is normal. Adnexa are unremarkable Osseous structures: No suspicious lytic or sclerotic lesions. IMPRESSION: 1. Some minimal right hydronephrosis is not excluded. Obstructing etiology is not evident. No hydrou reter is evident. [facility], , 07/19/2024 10:06 PM
== END | disposition home or self-care (01) ==
LOC: RADCTMAIN 15:11
PROVIDERS: ATTEND Family Medicine
DX: N13.30 Unspecified hydronephrosis (principal); R10.84 Generalized abdominal pain
CPT/HCPCS: 74176

== ENCOUNTER → 2024-12-05 | Outpatient (CLI) | payer OTHER ==
[2024-12-05 16:39] VITALS: BP 120/80; PULSE 77; RESP 12; TEMP 98.1
--- NOTE | 2024-12-05 17:04 | P.PROGSL ---
Subjective DATE: 12/05/2024 FOLLOW UP VISIT. Patient returned to sleep center for follow-up visit related to treatment of significant excessive daytime sleepiness secondary to narcolepsy. Patient is on treatment with Adderall 20 mg 3 times a day. With this regimen patient most of the time able to control her alertness. Sometimes episodes of cataplexy during the day. Few episodes of out of dream movements during the night. [place] sleepiness scale is 12. MEDICATIONS: Please see below During physical exam: GENERAL: A pleasant patient without any distress. VITAL SIGNS: Please see below. HEENT: PERRLA, EOMI. NECK: Supple. No JVD. LUNGS: Clear to percussion and to auscultation. Good air exchange. No wheezing or rhonchi. HEART: S1, S2 regular. ABDOMEN: Soft and nontender. EXTREMITIES: No clubbing or cyanosis. INTERIOR DESIGN PRINCIPAL: Awake, alert, and oriented x3. No focal deficit. Impressions: 1. Narcolepsy type I 2. History of REM sleep behavior disorder, improved on clonazepam 1 mg at bedtime. 3. Hypertension. 4. History of hemorrhagic stroke in 2017. 5. Asthma. 6. Acid reflux. 7. Back problems. 8. History of migraines. Plan: 1. Patient will continue treatment with Adderall 20 mg 3 times a day and clonazepam 1 mg at bedtime 2. Sleep hygiene with regular time in bed for at least 8 hours. 3. Daytime naps permitted 4. Precautions related to driving. No driving if feel any sleepiness. Patient is aware about civil and criminal liability for unsafe driving, promised to follow recommendations. 5. Follow up visit in 6 months or earlier if patient has any problems. Thank you very much for allowing me to participate in the management of your patient. Ad Lanza MD, PhD, FAASM. Diplomat of [employer], Sleep Medicine Board by [employer] Roller [employer]er [facility] [place] Objective - Vital Signs Vital Signs: Vital Signs Temp 98.1 F 12/05/24 16:37 Pulse 77 12/05/24 16:37 Resp 12 12/05/24 16:37 BP 120/80 12/05/24 16:37 Pulse Ox 99 12/05/24 16:37 FiO2 Intake & Output 12/04/24 12/05/24 12/05/24 18:59 06:59 18:59 Weight 67.132 kg Home Medications: Home Medications Medication Instructions Recorded Confirmed Type Lisinopril-Hctz 10-12.5 mg 1 tab PO DAILY 10/11/17 03/14/24 History [Zestoretic 10-12.5] Albuterol Sulfate [Ventolin HFA] 1 - 2 puff INHALATION RT-Q4H PRN 06/10/20 03/14/24 History Hyoscyamine Sulfate [Levsin] 0.125 mg PO TID PRN 06/10/20 03/14/24 History Metoprolol Tartrate [Lopressor] 25 mg PO BID 06/10/20 03/14/24 History Mometasone/Formoterol [Dulera 100 1 puff PO BID #1 inhaler 06/10/20 03/14/24 Rx Mcg-5 Mcg Inhaler] Omeprazole [PriLOSEC] 40 mg PO DAILY 06/10/20 03/14/24 History clonazePAM [KlonoPIN] 1 mg PO HS 06/10/20 03/14/24 History Dextroamphetamine/Amphetamine 20 mg PO TID 3 Days #90 tab 05/26/23 03/14/24 Rx [Adderall] Nortriptyline HCl 100 mg PO HS 12/01/23 03/14/24 History buPROPion HCL [Wellbutrin SR] 150 mg PO DAILY 12/01/23 03/14/24 History
== END ==
LOC: 3 N SLEEP 16:11
PROVIDERS: ATTEND Internal Medicine
DX: G47.419 Narcolepsy without cataplexy (principal); G47.52 REM sleep behavior disorder; I10 Essential (primary) hypertension; J45.909 Unspecified asthma, uncomplicated; K21.9 Gastro-esophageal reflux disease without esophagitis; F17.200 Nicotine dependence, unspecified, uncomplicated; Z86.73 Personal history of transient ischemic attack (TIA), and cerebral infarction without residual deficits; Z86.69 Personal history of other diseases of the nervous system and sense organs; Z88.8 Allergy status to other drugs, medicaments and biological substances
CPT/HCPCS: 99212

== ENCOUNTER → 2025-02-07 | Outpatient (CLI) | payer OTHER ==
[2025-02-07 20:10] LABS: Basophils # (A) 0.06 X 10*3/uL (0.00-0.10); Basophils % (A) 0.6 %; Eosinophils # (A) 0.12 X 10*3/uL (0.04-0.35); Eosinophils % (A) 1.1 %; HCT 46.0 % (37.2-46.3); HGB 14.9 g/dL (12.0-15.0); Immature Grans, Automated 0.50 %; Lymphocytes # (A) 1.64 X 10*3/uL (0.90-5.00); Lymphocytes % (A) 15.1 %; MCH 29.4 pg (27.0-32.0); MCHC 32.4 g/dL (32.0-37.0); MCV 90.9 FL (80.0-97.0); Monocytes # (A) 0.40 X 10*3/uL (0.20-1.00); Monocytes % (A) 3.7 %; NRBC Per 100 WBC 0 X 10*3/uL (0.00-0.01); Neutrophils # (A) 8.62 X 10*3/uL (1.80-7.70); Neutrophils % (A) 79.0 %; Platelet Count 174 X 10*3/uL (140-440); RBC 5.06 X 10*6/uL (4.10-5.20); RDW 13.0 % (11.5-14.5); WBC 10.89 X 10*3/uL (4.50-10.00)
[2025-02-07 21:01] LABS: ALT 45 U/L (8-44); AST 24 U/L (13-35); Albumin 4.9 g/dL (3.8-4.9); Albumin/Globulin Ratio 2.33 Ratio (1.60-3.17); Alkaline Phosphatase 144 U/L (41-126); Anion Gap 13.60 mmol/L (4.00-12.00); BUN/Creat Ratio 11.40 Ratio (12.00-20.00); Blood Urea Nitrogen 11.4 mg/dL (9.0-27.0); Calcium 9.6 mg/dL (8.7-10.3); Carbon Dioxide 26.4 mmol/L (21.6-31.8); Chloride 100 mmol/L (96-109); Globulin 2.1 g/dL (1.6-3.3); Glucose 98 mg/dL (70-110); Potassium 4.2 mmol/L (3.5-5.5); Sodium 140 mmol/L (135-145); Total Protein 7.0 g/dL (6.2-8.2)
== END | disposition home or self-care (01) ==
LOC: LABWHC1 13:03
PROVIDERS: ATTEND Nurse Practitioner Family
DX: R74.01 Elevation of levels of liver transaminase levels (principal)
CPT/HCPCS: 36415; 80053; 85025